=== PATIENT | female | born 1975 | race Caucasian/White ===

== ENCOUNTER → 2016-08-17 | Outpatient (CLI) | payer BC ==
[~2016-08-17] MED LIST: ATOR10TA66 PO
--- NOTE | 2016-08-17 16:31 | Diagnostic Imaging Report ---
INDICATION: IUD strings not visible. COMPARISON: 06/09/2015. DISCUSSION: Transabdominal and transvaginal sonographic evaluation of the pelvis was performed. The uterus is normal in echotexture and size measuring 8.9 x 5.2 x 5.0 cm. IUD is noted along the right aspect of the endometrial canal. Normal endometrial thickness measuring 0.8 cm. Neither ovary was visualized, possibly obscured by bowel. No abnormal adnexal mass or fluid. IMPRESSION: 1. IUD appears to be within the endometrium. 2. Nonvisualization of the bilateral ovaries. Dictated by: Dictated on workstation # [id number]
--- NOTE | 2016-08-18 18:09 | Diagnostic Imaging Report ---
Bilateral screening mammogram. The current study was also evaluated with a Computer Aided Detection (CAD) system. INDICATION: Screening. No current complaints stated on the questionnaire. COMPARISON: 05/08/15. FINDINGS: The breasts are composed of scattered fibroglandular densities. Occasional punctate calcifications are seen. Allowing for technique and positional differences, no suspicious change is seen. IMPRESSION: No significant change. ACR BI-RADS Category 2: Benign findings. Result letter will be mailed to the patient. Note: At least 10% of breast cancer is not imaged by mammography. Dictated by: Dictated on workstation # [id number]
== END ==
LOC: RAD 12:36
PROVIDERS: ATTEND Obstetrics & Gynecology
DX: Z12.31 Encounter for screening mammogram for malignant neoplasm of breast (principal); Z30.431 Encounter for routine checking of intrauterine contraceptive device
CPT/HCPCS: 76830; 76856; 77067

== ENCOUNTER 2017-12-02 09:06 | Outpatient (CLI) | payer BC ==
[~2017-12-02] VITALS: Ht 182.9 cm; Wt 136.3 kg
[2017-12-02] MEDS ORDERED: ENAL5TAB PO (09:16)
[2017-12-02 10:04] LABS: BASOPHILS % (AUTO) 0 % (0-10); EOSINOPHILS # (AUTO) 0.4 10^3/uL (0.0-0.3); EOSINOPHILS % (AUTO) 6 % (0-10); HEMATOCRIT 43 % (35-52); LYMPHOCYTES # (AUTO) 1.9 X 10^3 (1.0-4.0); LYMPHOCYTES % (AUTO) 25 % (12-44); MEAN CORPUSCULAR HEMOGLOBIN 32 PG (25-34); MEAN CORPUSCULAR HGB CONC 35 G/DL (32-36); MEAN CORPUSCULAR VOLUME 93 FL (80-99); MONOCYTES # (AUTO) 0.5 X 10^3 (0.0-1.0); MONOCYTES % (AUTO) 7 % (0-12); NEUTROPHILS # (AUTO) 4.8 X 10^3 (1.8-7.8); NEUTROPHILS % (AUTO) 63 % (42-75); PLATELET COUNT 212 10^3/uL (130-400); RED BLOOD COUNT 4.65 10^6/uL (4.35-5.85); RED CELL DISTRIBUTION WIDTH 13.8 % (10.0-14.5); WHITE BLOOD COUNT 7.6 10^3/uL (4.3-11.0)
== END 2017-12-02 11:36 | disposition home or self-care (01) ==
LOC: PREOP 09:06
PROVIDERS: ATTEND Obstetrics & Gynecology
DX: Z01.812 Encounter for preprocedural laboratory examination (principal); Z11.2 Encounter for screening for other bacterial diseases; N81.10 Cystocele, unspecified; N81.89 Other female genital prolapse; N81.6 Rectocele
CPT/HCPCS: 36415; 85025; 86850; 86900; 86901; 87081

== ENCOUNTER 2017-12-08 06:10 | Day surgery (SDC) | payer BC ==
[~2017-12-08] VITALS: Ht 182.9 cm; Wt 136.3 kg
[~2017-12-08 06:10] MED LIST changes: +ENAL5TAB PO
[2017-12-08] MEDS ORDERED: metroNIDAZOLE 500MG/100ML IVPB 100 ML IV ONE (06:15)
[2017-12-08] MEDS ORDERED: ceFAZolin 2 GM IV Premixed 50 ML IV ONE (06:15)
[2017-12-08 06:25] VITALS: BP 136/97
[2017-12-08] MEDS ORDERED: VASOPRESSIN INJECTION 20 UNIT/ML VIAL ONE (06:51)
[2017-12-08] MEDS ORDERED: ESTROGENS CONJ. CREAM 30 GM (PREMARIN) TUBE ONE (06:51)
[2017-12-08] MEDS ORDERED: BUPIVACAINE 0.25% 30 ML (SENSORCAINE) VIAL ONE (06:52)
[2017-12-08] MEDS ORDERED: FAMOTIDINE 20MG/2ML IV (PEPCID) IV ONE (07:00)
[2017-12-08] MEDS ORDERED: ONDANSETRON 4 MG/2 ML (SDV) Z0FRAN IV ONE (07:00)
[2017-12-08] MEDS: LACTATED RINGERS 1,000 ML IV PRN ×2 (07:00→09:15)
[2017-12-08] MEDS ORDERED: SCOPOLAMINE 1.5 MG (TRANSDERM-SCOP) PATCH TOP ONE (07:00)
[2017-12-08] MEDS ORDERED: MIDAZOLAM 2 MG/2 ML (VERSED) VIAL ONE (07:01)
[2017-12-08] MEDS ORDERED: fentaNYL INJECTION 250 MCG/5 ML AMP ONE (07:01)
[2017-12-08] MEDS ORDERED: DEXAMETHASONE 10 MG/ML (DECADRON) 1 ML VIAL ONE (07:05)
[2017-12-08] MEDS ORDERED: ONDANSETRON 4 MG/2 ML (SDV) Z0FRAN ONE ×2 (07:05→11:04)
[2017-12-08] MEDS ORDERED: proPOfol 200 MG/20 ML (DIPRIVAN) VIAL IV ONE (07:06)
[2017-12-08] MEDS ORDERED: SUCCINYLCHOLINE INJ 100 MG/5 ML SYR ONE (07:06)
[2017-12-08] MEDS ORDERED: LACTATED RINGERS 1,000 ML IV ONE (07:06)
[2017-12-08] MEDS ORDERED: ROCURONIUM 10 MG/ML 5 ML SYRINGE IV ONE ×2 (07:06→09:29)
--- NOTE | 2017-12-08 07:06 | Progress Note-Pre Operative ---
Pre-Operative Progress Note H&P Reviewed The H&P was reviewed, patient examined and no changes noted. Date Seen by Provider: Dec 08, 2017 Time Seen by Provider: 07:00 Date H&P Reviewed: Dec 08, 2017 Time H&P Reviewed: 07:05 Pre-Operative Diagnosis: POP, Cystocele, Rectocele TRISTAN GARCIA DO Dec 08, 2017 7:06 am
[2017-12-08] MEDS ORDERED: SEVOFLURANE (ULTANE) 15 ML INHAL SOLN ONE ×11 (07:07→09:37)
--- NOTE | 2017-12-08 07:10 | Discharge Inst-Women's Service ---
Discharge Inst-Women's Serv Depart Medication/Instructions New, Converted or Re-Newed RX: RX on Chart Consults/Follow Up Additional Follow Up: Yes Orders/Referrals Dr. Cruz in 7-10 days and in 8 weeks Activity Activity: Activity as Tolerated Driving Instructions: No Driving for 1 Week NO SMOKING: NO SMOKING Nothing Inside Vagina: No Douching, No Webber, No Tampons Diet Discharge Diet: No Restrictions Symptoms to Report to : Bleeding Excessive, Pain Increased, Fever Over 101 Degrees F, Vaginal Bleeding Increase, Questions/Concerns For Any Problems or Questions: Contact Your Physician Skin/Wound Care Infection Signs and Symptoms: Increased Redness, Foul Odor of Wound, Increased Drainage, Skin Itchy or Has a Rash, Increased Swelling, Temperature Above 101 F Operative Area Clean and Dry: Keep Incision Clean/Dry Stitches/Humera/Dermabond: Dermabond, Care of Stitches Bathing Instructions: TRISTAN Leyva DO Dec 08, 2017 7:10 am
[2017-12-08] MEDS ORDERED: HYDR-34 PO (07:13)
[2017-12-08] MEDS ORDERED: IBUP-844 PO (07:13)
[2017-12-08] MEDS ORDERED: DOCU100C37 PO (07:13)
[2017-12-08] MEDS ORDERED: SIME80TA16 PO (07:13)
[2017-12-08] MEDS ORDERED: ZOLPIDEM 5 MG (AMBIEN) TAB PO PRN (07:15)
[2017-12-08] MEDS ORDERED: CHLORASEPTIC LOZENGE MM PRN (07:15)
[2017-12-08] MEDS ORDERED: ONDANSETRON 4 MG/2 ML (SDV) Z0FRAN IV PRN (07:15)
[2017-12-08] MEDS ORDERED: ANTACID SUSP 30 ML UDC (MYLANTA) PO PRN (07:15)
[2017-12-08] MEDS: NS (IVPB) 100 ML ONE ×2 (09:20→09:50)
[2017-12-08] MEDS ORDERED: GLYCOPYRROLATE 0.2 MG/ML (ROBINUL) 2 ML VIAL ONE (09:28)
[2017-12-08] MEDS ORDERED: NEOSTIGMINE 1 MG/ML 5 ML SYRINGE ONE (09:28)
--- OUTSIDE RECORDS SUMMARY | 2017-12-08 09:48 | XMS REPORT | Continuity of Care Document ---
Author Author [facility] Organization [facility] Address Unknown Phone Unavailable Allergies Active Description Code Type Severity Reaction Onset Reported/Identified Relationship to Patient Clinical Status Yes codeine [id number] Drug Allergy Moderate GI UPSET 08/08/2015 Medications There is no data. Problems Date Dx Coded Attending Type Code Diagnosis Diagnosed By 05/21/2015 LUCAS FUENTES Ot Z01.419 05/21/2015 LUCAS FUENTES Ot Z12.31 06/30/2015 LUCAS FUENTES Ot R93.8 08/08/2015 JEREMY ALVARADO DO Ot Z01.818 ENCOUNTER FOR OTHER PREPROCEDURAL EXAMIN 08/12/2015 JEREMY ALVARADO DO Ot K92.1 MELENA 08/12/2015 JEREMY ALVARADO DO Ot R19.7 DIARRHEA, UNSPECIFIED 08/12/2015 JEREMY ALVARADO DO Ot Z80.0 FAMILY HISTORY OF MALIGNANT NEOPLASM OF 08/13/2015 JEREMY ALVARADO DO Ot K92.1 08/13/2015 JEREMY ALVARADO DO Ot R19.7 08/13/2015 JEREMY ALVARADO DO Ot Z80.0 09/10/2015 JEREMY ALVARADO DO Ot K92.1 MELENA 09/10/2015 JEREMY ALVARADO DO Ot R19.7 DIARRHEA, UNSPECIFIED 09/10/2015 JEREMY ALVARADO DO Ot Z80.0 FAMILY HISTORY OF MALIGNANT NEOPLASM OF 03/10/2016 LUCAS FUENTES Ot Z01.419 ENCNTR FOR HEALTH AND WELLNESS ADVISOR EXAM (GENERAL) (ROUTINE) 03/10/2016 LUCAS FUENTES Ot Z12.31 ENCNTR SCREEN MAMMOGRAM FOR MALIGNANT NE 03/10/2016 LUCAS FUENTES Ot R93.8 ABNORMAL FINDINGS ON DIAGNOSTIC IMAGING 08/17/2016 LUCAS FUENTES Ot Z01.419 ENCNTR FOR HEALTH AND WELLNESS ADVISOR EXAM (GENERAL) (ROUTINE) 08/17/2016 LUCAS FUENTES Ot Z12.31 ENCNTR SCREEN MAMMOGRAM FOR MALIGNANT NE 08/17/2016 LUCAS FUENTES Ot R93.8 ABNORMAL FINDINGS ON DIAGNOSTIC IMAGING 09/01/2016 BUZZ DAVE, LIDA Cole Ot Z12.31 ENCNTR SCREEN MAMMOGRAM FOR MALIGNANT NE 09/01/2016 LIDA GERBER MD Ot Z30.431 ENCOUNTER FOR ROUTINE CHECKING OF INTRAU Procedures There is no data. Results There is no data. Encounters ACCT No. Visit Date/Time Discharge Status Pt. Type Provider Facility Loc./Unit Complaint [id number] 09/19/2017 09:24:00 09/19/2017 23:59:59 CLS Preadmit LUCAS FUENTES [facility] RAD SCREENING [id number] 08/17/2016 12:36:00 08/17/2016 23:59:59 CLS Outpatient LIDA GERBER MD [facility] RAD SCREENING,US PELVIS NON OB [id number] 08/12/2015 07:50:00 08/12/2015 10:30:00 DIS Outpatient JEREMY ALVARADO DO [facility] BLOOD IN STOOL,FAMILY HISTORY [id number] 08/08/2015 05:35:00 08/08/2015 11:07:00 DIS Outpatient JEREMY ALVARADO DO [facility] PREOP BLOOD IN STOOL,FAMILY HISTORY [id number] 06/09/2015 09:55:00 06/09/2015 23:59:59 CLS Outpatient LUCAS FUENTES [facility] RAD THICKENED ENDOMETRIUM [id number] 05/08/2015 12:47:00 05/08/2015 23:59:59 CLS Outpatient LUCAS FUENTES [facility] RAD SCREENING [id number] 12/08/2017 07:30:00 PEN Preadmit TRISTAN GARCIA DO [facility] SD POP,RECTOCELE GRADE 3, CYSTOCELE GRADE 2 [id number] 02/14/2017 12:42:00 02/14/2017 23:59:00 DIS Outpatient KALLIE BURNETTY
[2017-12-08] MEDS ORDERED: morphine INJ 10 MG/ML 1ML (SYR OR VIAL) ONE (10:07)
[2017-12-08] MEDS ORDERED: KETOROLAC 30 MG/ML VIAL ONE (10:07)
[2017-12-08] MEDS: KETOROLAC 30 MG/ML VIAL IV PRN ×3 (10:12→23:10)
[2017-12-08] MEDS: morphine INJ 10 MG/ML 1ML (SYR OR VIAL) IVP PRN ×2 (10:14→10:25)
[2017-12-08] MEDS ORDERED: ONDANSETRON 4 MG/2 ML (SDV) Z0FRAN IVP PRN (10:30)
[2017-12-08] MEDS ORDERED: HYDROmorphone 1 MG/ML (DILAUDID) 1 ML SYRINGE IV PRN (10:30)
[2017-12-08 11:15] VITALS: BP 122/82
[2017-12-08] MEDS ORDERED: PROMETHAZINE INJ 25 MG/ML (PHENERGAN) AMP IVP PRN (13:00)
[2017-12-08 13:10] VITALS: BP 114/74
[2017-12-08] MEDS ORDERED: ARTIFICAL TEARS 0.4 ML UNIT DOSE (REFRESH PLUS) OU PRN (13:30)
[2017-12-08] MEDS: LACTATED RINGERS 1,000 ML IV SCH ×2 (13:31→21:14)
[2017-12-08 14:00] VITALS: BP 136/84
--- NOTE | 2017-12-08 15:33 | OPERATIVE REPORT ---
DATE OF SERVICE: PREOPERATIVE DIAGNOSES: 1. A 42-year-old female with pelvic organ prolapse. 2. Cystocele grade II. 3. Rectocele grade III. POSTOPERATIVE DIAGNOSES: 1. A 42-year-old female with pelvic organ prolapse. 2. Cystocele grade II. 3. Rectocele grade III. 4. Right ovarian cyst. PROCEDURES: 1. Robotic-assisted total laparoscopic hysterectomy with bilateral salpingectomy and right ovarian cystectomy. 2. Anterior colporrhaphy. 3. Posterior colporrhaphy. SURGEON: Catracho Cruz DO. CLINICAL REIMBURSEMENT SPECIALIST: DELANEY Jack. ANESTHESIA: General endotracheal. ESTIMATED BLOOD LOSS: 80 mL. URINE OUTPUT: 100 mL clear at the end of the procedure. FLUIDS: 1800 mL of lactated Ringer solution. FINDINGS: A normal appearing uterus with prolapse to the vaginal introitus, grade II cystocele and a grade III rectocele. Grossly normal vaginal mucosa. Grossly normal bilateral fallopian tubes. Grossly normal appearing bilateral ovaries with a simple appearing cyst of the right ovary. SPECIMEN SENT: Uterus, bilateral fallopian tubes and right ovarian cyst. INDICATIONS FOR PROCEDURE: This 42-year-old female was a consultation to my clinic from our nurse practitioner for concerns with pelvic organ prolapse, pressure discomfort, pain with intercourse as well as having difficulty passing bowel movement and urine due to the degree of prolapse. We discussed with the patient in the preoperative consultation alternatives including doing nothing as this was not life threatening; however, we also discussed pessary placement. The patient is young at the age of 42, still sexually active with her and desired a definitive therapy, which would be hysterectomy as well as reconstruction of the vaginal rene and anterior and posterior colporrhaphy. We discussed risk of recurrent breakdown of this in detail. Risks of the procedure were discussed in detail. The preoperative and postoperative expectations as well as recovery time frame as well as if anything should be damaged during the procedure. We discussed followup procedure that may be indicated. After all of her questions were answered, consent was obtained in the preoperative area and the patient was taken to the operating room. DESCRIPTION OF PROCEDURE: Once in the operating room, general anesthesia was found to be adequate, placed in dorsal lithotomy position, prepped and draped in a normal sterile fashion. Mason catheter was placed using a sterile technique. A weighted speculum inserted to the patient's vagina. A right angle retractor was utilized. Cervix was grasped at 12 o'clock position using a long Allis clamp. I then placed a 0 Vicryl to the anterior lip of the cervix and then removed the long Allis clamp. The Vicryl suture was then used as my retraction point. I then sound the uterine cavity and depth was found to be 8 cm. I then placed a Heu uterine manipulator with an 8 cm tip and a 3.5 cm colpotomy ring into the uterus, deploying the balloon and advancing the colpotomy ring around the vaginal fornix. Once this was in place, I am able to appreciate bimanual manipulation. I then performed a change of gloves and took my attention to the abdomen where infraumbilically I infiltrated this area using 0.25% Marcaine to make an 8 mm incision and a rectoperineal Veress needle through the incision until the intraperitoneal placement was confirmed using a saline drop test. I then proceeded with insufflation using CO2 gas and opening pressure of 5 mmHg was noted. I proceeded to maximum pressure of 15 mmHg, at which point I removed the Veress needle and introduced an 8 mm blunt trocar through the incision until intraperitoneal placement was confirmed using the da Keyanna laparoscope. I then had the patient placed in in steep Trendelenburg and made to visualize all the anatomy described in my findings above. I then placed two lateral trocars approximately 12 cm lateral to my infraumbilical trocar. These were both 8 mm incisions. The skin was then infiltrated using 0.25% Marcaine. Incisions were made with a knife and the trocars were placed under direct visualization of the laparoscope. Once peritoneal access was obtained through these trocar sites, I then brought in the da Keyanna robot and docked it in the appropriate fashion placing the vessel sealer in the left hand and monopolar amanuel in the right hand. I performed the following dissection bilaterally starting at the uteroovarian ligament I bipolar cauterized this and transected using the vessel sealer. I created a window in the mesosalpinx using monopolar amanuel and took this laterally down the mesosalpinx using cautery to maintain hemostasis and to amputate the fallopian tube from the mesosalpinx. I then grasped the round ligament, bipolar cauterized and transected it using the vessel sealer. I then grasped the entire broad ligament, bipolar cauterized this and transected using the vessel sealer down to the level of the lower uterine segment, at which point I the anterior and posterior leaflets. The anterior leaflet was taken down to the anterior vaginal fornix. The posterior leaflet dissection was taken around to the posterior vaginal fornix. This allowed me to skeletonize the uterine vessels laterally and allowed the ureter to fall laterally to my dissection plane. Once I bipolar cauterized the uterine vessels, I transected them using the vessel sealer. I then created a colpotomy at the 12 o'clock position visualizing the Hue uterine manipulator ring. I then took this around the manipulator ring using monopolar amanuel amputating the cervix away from the vaginal fornix. The entire specimen was then removed from the vagina. I then proceeded to closing the vaginal incision using 2-0 Vicryl suture in a [id number] fashion and the lateral vaginal apices, colposuspending them through the uterosacral ligaments. I then closed the remainder of the vaginal cuff using 2-0 V-Loc in a running fashion, after which there was no active bleeding noted from my dissection planes. I then removed the cyst from the right ovary, which was previously described without difficulty using monopolar amanuel and retraction. There was no active bleeding noted from the ovary either after I did this. This specimen was then removed through the right trocar site. I then proceeded with copiously irrigating the pelvis with normal saline after undocking the da Keyanna robot proceeding laparoscopically. Once again, no active bleeding was noted from any of my dissection planes. I placed FloSeal hemostatic agent over all my planes of dissection and took the patient out of steep Trendelenburg removing the lateral trocars under direct visualization of the laparoscope and infraumbilical trocars left in place to release insufflation and introduced 10 mL of 0.25% Marcaine into the peritoneal cavity for postoperative pain management. I then removed this trocar as well. The skin was then closed using 4-0 Monocryl in an interrupted subcuticular stitches. Dermabond was applied to the incision and Band-Aids were placed over these as well. I then took my attention back to the vagina where there is still the persistence of a cystocele and a rectocele. I first started by performing the cystocele. Weighted speculum was inserted in the patient's vagina, which allowed me to isolate the anterior vaginal wall and isolate the margins of the cystocele. I infiltrated the submucosa of the anterior wall of the vagina along the margin of the cystocele, using vasopressin, a concentration of 20 units in 100 mL of normal saline. Once this was done, there was adequate blanching of the vaginal mucosa. I made an incision at the proximal margin of the cystocele and undermining this margin incision using Metzenbaum scissors down the midline of the cystocele. Once the distal margin of the cystocele is met, I then grasped the lateral aspects of my incision and tented them upward using a T clamp and dissected the underlying vesicovaginal fascia off of the mucosa. The excess mucosa was then trimmed down to the lateral aspects of the incision and this allowed me to place plication sutures to the vesicovaginal fascia using 0 Vicryl suture in an interrupted fashion plicating and reducing the cystocele. I then closed the mucosa of the cystocele using 3-0 Vicryl suture in a running locked fashion, after which good hemostasis was noted from this dissection. I then removed the weighted speculum in and take my attention to the rectocele where starting at the perineum at the mucocutaneous junction, I infiltrated the entire margin of the perineum and the margins of the vaginal mucosa in similar fashion to the cystocele with vasopressin same concentration and obtained adequate tissue blanching. Once this was done, I created an upside down triangle incision on the perineal body and dissected the skin off of the underlying subcutaneous tissue. I was then unable to take a plane in the submucosal space using Metzenbaum scissors down the midline of the rectocele all the way to its distal margin. The incision is taken down the midline as well. The underlying rectovaginal fascia was dissected off the underlying mucosa. I then trimmed the excess vaginal mucosa, reapproximated the rectovaginal fascia using 0 Vicryl suture in interrupted fashion in plication fashion. This reduces the rectocele as well. I then reapproximated the mucosa using 2-0 Vicryl suture in a running locked fashion. Once I got to the mucocutaneous junction, I closed the remainder of the perineal body like I would, an episiotomy repair placing two crown sutures of 2-0 Vicryl suture through the bulbocavernosus muscles and then reapproximating the mucosa and subcuticular tissue using the 3-0 Vicryl suture in running fashion, after which there was no active bleeding noted from any of my dissection planes. I then copiously irrigated the vagina using normal saline and packed the vagina using Premarin soaked vaginal packing. Mason catheter was left in place. The patient tolerated the procedure well and was sent to the recovery area in stable condition. Lap and sponge count was correct at the end of the procedure. Instruments counts were correct as well. Two grams of Ancef and 500 mg of Flagyl were given probably for infection prophylaxis. Job ID: [id number] DocumentID: [id number] Dictated Date: 12/08/2017 10:38:12 Copy Reader Date: 12/08/2017 15:33:06 Dictated By: DO EPI HONEYCUTT
--- NOTE | 2017-12-08 16:06 | Anesthesia-General Post-Op ---
General Patient Condition Mental Status/LOC: Same as Preop Cardiovascular: Satisfactory Nausea/Vomiting: Absent Respiratory: Satisfactory Pain: Controlled Complications: Absent Post Op Complications Complications None Follow Up Care/Instructions Patient Instructions None needed. Anesthesia/Patient Condition Patient Condition Patient was C/O bilateral eye pain on arrival to the women's services floor. I spoke with Maia (WOOD FLOORING SPECIALIST) and she said that the pt did not C/O any issues in PACU. I spoke with pt and her they both said her eyes looked better in the last couple of hours. She is able to fully open her eyes and has no vision issues. I told her to contact us if it worsens. VIVIENNE WEBB DO Dec 08, 2017 16:06
[2017-12-08 16:30] VITALS: BP 102/63
[2017-12-08] MEDS: HYDROcodone/APAP 7.5 MG/325 MG (LORTAB, LORCET PLUS) TABLET PO PRN (16:51)
[2017-12-08 19:52] VITALS: BP 106/51
[2017-12-08] MEDS: DOCUSATE SODIUM 100 MG (COLACE) CAP PO PRN (23:15)
[2017-12-09] MEDS ORDERED: IBUPROFEN 600 MG (MOTRIN) TAB PO PRN
[2017-12-09] MEDS ORDERED: KETOROLAC 30 MG/ML VIAL ONE (04:26)
[2017-12-09 04:31] VITALS: BP 115/65
[2017-12-09] MEDS: KETOROLAC 30 MG/ML VIAL IV PRN (04:34)
[2017-12-09] MEDS: HYDROcodone/APAP 7.5 MG/325 MG (LORTAB, LORCET PLUS) TABLET PO PRN ×2 (05:43→13:04)
[2017-12-09 08:00] VITALS: BP 111/72
[2017-12-09] MEDS: SIMETHICONE 80 MG (MYLICON) CHEW PO PRN ×2 (08:47→13:05)
[2017-12-09] MEDS: DOCUSATE SODIUM 100 MG (COLACE) CAP PO PRN (08:47)
--- NOTE | 2017-12-09 09:09 | Anesthesia-General Post-Op ---
General Patient Condition Mental Status/LOC: Same as Preop Cardiovascular: Satisfactory Nausea/Vomiting: Absent Respiratory: Satisfactory Pain: Controlled Complications: Absent Post Op Complications Complications None Follow Up Care/Instructions Patient Instructions None needed. Anesthesia/Patient Condition Patient Condition Patient is doing well, no complaints, stable vital signs, no apparent adverse anesthesia problems. No complications reported per nursing. SHANDA WATERS CRNA Dec 09, 2017 09:09
[2017-12-09] MEDS ORDERED: ESTR42.52 VG (10:02)
[2017-12-09 12:00] VITALS: BP 98/69
[2017-12-09 14:00] VITALS: BP 98/69
== END 2017-12-09 14:00 | disposition home or self-care (01) ==
LOC: SDC 06:10 → WS 11:00 → SDC 12-09 14:00
PROVIDERS: ATTEND Obstetrics & Gynecology
DX: N81.10 Cystocele, unspecified (principal); N81.6 Rectocele; N72 Inflammatory disease of cervix uteri; N83.8 Other noninflammatory disorders of ovary, fallopian tube and broad ligament; N83.11 Corpus luteum cyst of right ovary; N39.3 Stress incontinence (female) (male); K59.09 Other constipation; I10 Essential (primary) hypertension; K21.9 Gastro-esophageal reflux disease without esophagitis; E66.01 Morbid (severe) obesity due to excess calories; Z68.41 Body mass index [BMI] 40.0-44.9, adult
CPT/HCPCS: 84703; 86850; 86900; 86901; 94664

== ENCOUNTER → 2018-10-13 | Outpatient (CLI) | payer BC ==
[~2018-10-13] MED LIST changes: +DOCU100C37 PO; +ESTR42.52 VG; +HYDR-34 PO; +IBUP-844 PO; +SIME80TA16 PO
--- NOTE | 2018-10-13 11:56 | Diagnostic Imaging Report ---
Clinical indication: Patient with pain in lumbar left hip region for approximately 2 weeks. No known injury. Patient has history of L4-5 discectomy and lap band. Exam: X-ray of the lumbar spine, 3 views. Comparison: None. Findings: Transitional lumbosacral vertebra is seen and will be designated as the S1 vertebral body. Of note, nomenclature may change if cross-sectional imaging of the spine is obtained. Lumbar spine has normal alignment with no acute fracture or dislocation. Hypertrophic spurs involving the visualized lower thoracic spine and lower lumbar spine. There is moderate to severe loss of intervertebral disc height at the L4-L5 and L5-S1 levels. There is mild loss of intervertebral disc height at the L3-L4 level. There is facet arthropathy in the lower lumbar spine. Lap band is noted. Impression: 1: There is no acute lumbar spine fracture or dislocation. 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 Dictated by: Dictated on workstation # [id number]
== END ==
LOC: RAD 10:07
PROVIDERS: ATTEND Family Medicine
DX: M51.37 Other intervertebral disc degeneration, lumbosacral region (principal); M46.86 Other specified inflammatory spondylopathies, lumbar region; Z98.84 Bariatric surgery status; Z98.890 Other specified postprocedural states
CPT/HCPCS: 72100

== ENCOUNTER 2019-02-12 11:00 | Day surgery (SDC) | payer BC ==
[~2019-02-12] VITALS: Ht 180.3 cm; Wt 138.3 kg
[2019-02-12 11:32] VITALS: BP 136/82
--- NOTE | 2019-02-12 11:35 | NUR ---
JOVITA HINTON admitted to room 420-1, with an admitting diagnosis of CHEST PAIN AND DEHYDRATION, on 02/12/[address] OFF[address] [facility] OF [facility]IVATE [facility], accompanied by .JOVITA HINTON introduced to surroundings, call light, bed controls, phone, TV, temperature control, lights, meal times, smoking policy, visitor policy, side rail policy, bathrooms and showers.JOVITA HINTON verbalizes understanding that [facility] is not responsible for the loss or damage to any personal effects or valuables that are kept in the patients posession during their hospitalization. The following Patient Care Plans were discussed with the PATIENT: Discharge Planning,PAIN,TELEMONITORING, and FLUIDS. JOVITA HINTON verbalizes understanding of Interdisciplinary Patient Education.
[2019-02-12 12:00] VITALS: BP 136/82
[2019-02-12 12:02] LABS: BASOPHILS % (AUTO) 0 % (0-10); EOSINOPHILS # (AUTO) 0.1 10^3/uL (0.0-0.3); EOSINOPHILS % (AUTO) 0 % (0-10); HEMATOCRIT 49 % (35-52); HEMOGLOBIN 16.7 G/DL (11.5-16.0); LYMPHOCYTES # (AUTO) 1.5 X 10^3 (1.0-4.0); LYMPHOCYTES % (AUTO) 10 % (12-44); MEAN CORPUSCULAR HEMOGLOBIN 31 PG (25-34); MEAN CORPUSCULAR HGB CONC 34 G/DL (32-36); MEAN CORPUSCULAR VOLUME 90 FL (80-99); MEAN PLATELET VOLUME 9.3 FL (7.4-10.4); MONOCYTES # (AUTO) 0.8 X 10^3 (0.0-1.0); MONOCYTES % (AUTO) 5 % (0-12); NEUTROPHILS # (AUTO) 12.5 X 10^3 (1.8-7.8); NEUTROPHILS % (AUTO) 84 % (42-75); PLATELET COUNT 360 10^3/uL (130-400); RED CELL DISTRIBUTION WIDTH 13.5 % (10.0-14.5); WHITE BLOOD COUNT 14.9 10^3/uL (4.3-11.0)
[2019-02-12 12:24] LABS: ALANINE AMINOTRANSFERASE 102 U/L (0-55); ALBUMIN 3.9 GM/DL (3.2-4.5); ALKALINE PHOSPHATASE 80 U/L (40-136); BILIRUBIN,TOTAL 0.7 MG/DL (0.1-1.0); BUN/CREATININE RATIO 13; CALCIUM 8.8 MG/DL (8.5-10.1); CARBON DIOXIDE 20 MMOL/L (21-32); CHLORIDE 108 MMOL/L (98-107); CREATININE SERUM 0.89 MG/DL (0.60-1.30); GFR ESTIMATED > 60; GLUCOSE 162 MG/DL (70-105); POTASSIUM 4.3 MMOL/L (3.6-5.0); SODIUM 138 MMOL/L (135-145); TOTAL PROTEIN 7.2 GM/DL (6.4-8.2)
--- NOTE | 2019-02-12 12:46 | Consultation-Cardiology ---
HPI-Cardiology Cardiology Consultation: Date of Consultation 02/12/19 Time Seen by a Provider: 12:45 Date of Admission 02-12-19 Attending Physician Sundar Newberry MD Admitting Physician Sundar Newberry MD Consulting Physician Janny Bermeo MD HPI: Chief Complaint: Chest pain Ms. Arias is a 43 year old female admitted to [facility] as a direct admit from Dr. Newberry's office with c/o chest discomfort. She reports she was seen in the ED at [facility] yesterday with for the same discomfort. She reports yesterday she began to have a burning sensation in her chest with radiation of a sharp pain under her left breast. She reports she took antacids without relief and then went to the ED at [facility]. She reports n/v yesterday. She reports she had a fever yesterday as well. She reports they did an EKG and CXR. She reports they gave her a GI cocktail which did not provide any relief. She reports the discomfort gradually resolved. She states again today she had a return of the symptoms. She then went to see Dr. Newberry and was sent to the hospital. She reports the discomfort has improved. She also reports difficulty swallowing at times. She denies any dyspnea, syncope, near syncope or palpitations. She reports continue nausea. Review of Systems-Cardiology Review of Systems Constitutional: No chills; fever; No malaise Eyes: No vision change Ears/Nose/Throat: No epistaxis, No nasal drainage, No recent hearing loss Respiratory: As described under HPI Cardiovascular: As described under HPI Gastrointestinal: As described under HPI Genitourinary: No dysuria, No hematuria Skin: No rash on exposed areas, No ulcerations on exposed areas Psychiatric/Neurological: No anxiety, No depression, No seizure, No focal weakness, No syncope Hematologic: No bleeding abnormalities SFC-Nivbrr-Pibnzu Hx Patient Social History Recent Foreign Travel: No Recent Infectious Disease Expo: No Immunizations Up To Date Tetanus Booster (TDap): Unknown Past Medical History PMH As described under Assessment. Family Medical History Family Medical History: She reports her father had an OK in his 40's. Allergies and Home Medications Allergies Coded Allergies: codeine (Verified Allergy, Intermediate, GI UPSET, 12/02/17) Home Medications Acetaminophen 325 Mg Tablet, 650-975 MG PO Q8H PRN for PAIN-MILD, (Reported) Enalapril Maleate 5 Mg Tablet, 5 MG PO DAILY, (Reported) Ibuprofen 200 Mg Capsule, 600 MG PO Q8H PRN for PAIN-MILD, (Reported) Patient Home Medication List Home Medication List Reviewed: Yes Physical Exam-Cardiology Physical Exam Vital Signs/I&O 02/12/19 02/13/19 02/13/19 02/13/19 20:00 00:00 01:00 04:00 Temp 36.6 36.0 Pulse 85 93 77 Resp 16 18 B/P (MAP) 125/80 (95) 117/78 (91) Pulse Ox 96 96 O2 Delivery Room Air Room Air Room Air 02/13/19 00:00 Intake Total 1989 ml Balance 1989 ml Capillary Refill : Constitutional: AAO x 3, well-developed, well-nourished HEENT: PERRL, hearing is well preserved, oral hygience is good Neck: No carotid bruit; carotid pulses are 2 + bilaterally Respiratory: No accessory muscle use, No respiratory distress; chest expansion is symmetric, chest is bilaterally symmetric, lungs clear to auscultation Cardiovascular: regular rate-rhythm; No JVD; S1 and S2 Gastrointestinal: No tender; soft, round, audible bowel sounds Rectal: deferred Extremities: no lower extremity edema bilateral Neurologic/Psychiatric: grossly intact, power is 5/5 both on sides Skin: No rash on exposed areas, No ulcerations on exposed areas Data Review Labs Laboratory Tests 02/12/19 11:55: White Blood Count 14.9H, Red Blood Count 5.42, Hemoglobin 16.7H, Hematocrit 49, Mean Corpuscular Volume 90, Mean Corpuscular Hemoglobin 31, Mean Corpuscular Hemoglobin Concent 34, Red Cell Distribution Width 13.5, Platelet Count 360, Mean Platelet Volume 9.3, Neutrophils (%) (Auto) 84H, Lymphocytes (%) (Auto) 10L , Monocytes (%) (Auto) 5, Eosinophils (%) (Auto) 0, Basophils (%) (Auto) 0, Neutrophils # (Auto) 12.5H, Lymphocytes # (Auto) 1.5, Monocytes # (Auto) 0.8, Eosinophils # (Auto) 0.1, Basophils # (Auto) 0.0, Neutrophils % (Manual) 82, Lymphocytes % (Manual) 12, Monocytes % (Manual) 4, Eosinophils % (Manual) 1, Band Neutrophils 1, Blood Morphology Comment NORMAL, Sodium Level 138, Potassium Level 4.3, Chloride Level 108H, Carbon Dioxide Level 20L, Anion Gap 10, Blood Urea Nitrogen 12, Creatinine 0.89, Estimat Glomerular Filtration Rate > 60, BU N/Creatinine Ratio 13, Glucose Level 162H, Calcium Level 8.8, Corrected Calcium 8.9, Total Bilirubin 0.7, Aspartate Amino Transf (AST/SGOT) 67H, Alanine Aminotransferase (ALT/SGPT) 102H, Alkaline Phosphatase 80, Troponin I < 0.028, Total Protein 7.2, Albumin 3.9 02/13/19 06:11: White Blood Count 9.4, Red Blood Count 4.37, Hemoglobin 13.6, Hematocrit 41, Mean Corpuscular Volume 93, Mean Corpuscular Hemoglobin 31, Mean Corpuscular Hemoglobin Concent 33, Red Cell Distribution Width 13.3, Platelet Count 262, Mean Platelet Volume 9.5, Sodium Level 136, Potassium Level 4.1, Chloride Level 109H, Carbon Dioxide Level 21, Anion Gap 6, Blood Urea Nitrogen 10, Creatinine 0.74, Estimat Glomerular Filtration Rate > 60, BUN/Creatinine Ratio 14, Glucose Level 118H, Calcium Level 7.8L, Corrected Calcium 8.3L, Total Bilirubin 0.8, Aspartate Amino Transf (AST/SGOT) 36H, Alanine Aminotransferase (ALT/SGPT) 68H, Alkaline Phosphatase 66, Total Protein 5.8L, Albumin 3.4, Magnesium Level 2.0, Triglycerides Level 134, Cholesterol Level 161, LDL Cholesterol Direct 120, VLDL Cholesterol 27, HDL Cholesterol 30L, Thyroid Stimulating Hormone (TSH) 2.31 A/P-Cardiology Assessment/Admission Diagnosis Chest pain of undetermined etiology Cardiac cath of October [address] Mendenhall showed no signif obstructive dz. LVEF 60%. Normal thoracic aortic root Echo of October [address] Mendenhall showed LVEF 60% Elevated liver enzymes of undetermined etiology - medical services managing Leukocytosis of undetermined etiology - medical services managing H/O lap band in [place] approx 10 years ago Elevated BMI of 42.5 Discussion and Recomendations Chest discomfort of undetermined etiology Echocardiogram to eval structure Continue home anti-hypertensives Monitor lab Further recs will be based on her hospital course We would like to thank medical services for this consult GREG MARY Feb 12, 2019 12:46
[2019-02-12 12:59] LABS: BAND NEUTROPHILS 1 %; EOSINOPHILS % (MANUAL) 1 %; LYMPHOCYTES % (MANUAL) 12 %; MONOCYTES % (MANUAL) 4 %; NEUTROPHILS % (MANUAL) 82 %; RBC MORPH NORMAL
[2019-02-12] MEDS ORDERED: IBUP-2185 PO (13:27)
[2019-02-12] MEDS ORDERED: ACET325T38 PO (13:27)
--- NOTE | 2019-02-12 13:28 | NUR ---
SPOKE WITH PT WELL GOING THRU THE EXT MED HISTORY TO COMPLETE THE MED REC. PT SAYS SHE ONLY TAKES 1 PRESCRIPTION MED AND IT SHOWS ON THE EXT MED HISTORY. SHE WAS ABLE TO TELL ME HOW/WHEN SHE TAKES HER MEDS OTC MEDS: IBUPROFEN 200M TABS Q 8 H PRN APAP 325M-3 TS Q 8 H PRN
--- NOTE | 2019-02-12 13:35 | Diagnostic Imaging Report ---
INDICATION: Chest pain. TIME OF EXAMINATION: 1:05 PM. COMPARISON: No prior studies are available for comparison. FINDINGS: The heart size is normal. The pulmonary vascularity is unremarkable. The lungs are clear. No infiltrate, effusion, or pneumothorax is detected. IMPRESSION: No acute cardiopulmonary process is detected. Dictated by: Dictated on workstation # [id number]
[2019-02-12] MEDS: NS IV 1000 ML 1,000 ML IV SCH ×2 (14:18→21:07)
[2019-02-12 16:00] VITALS: BP 115/81
[2019-02-12] MEDS ORDERED: diphenhydrAMINE 25 MG TAB (BENADRYL) PO NR (16:00)
[2019-02-12] MEDS ORDERED: fentaNYL INJECTION 100 MCG/2 ML AMP IVP PRN (16:45)
[2019-02-12] MEDS ORDERED: PROMETHAZINE INJ 25 MG/ML (PHENERGAN) AMP IVP PRN (16:45)
[2019-02-12] MEDS ORDERED: ONDANSETRON 4 MG/2 ML (SDV) Z0FRAN IVP PRN (16:45)
[2019-02-12] MEDS ORDERED: CATHETER FLUSH 10 ML SYR IV PRN (17:00)
--- NOTE | 2019-02-12 17:30 | CONSULTATION REPORT ---
DATE OF SERVICE: 02/12/2019 ADMITTING PRIMARY CARE PHYSICIAN: Dr. Newberry. HISTORY OF PRESENT ILLNESS: The patient is a 43-year-old female who we have seen before in the past. She has a history of morbid obesity and medical comorbidities including degenerative joint disease and hypertension. She is status post laparoscopic adjustable gastric band placement with an [employer]er[employer] APS band in 03/2008 in [place], [place]. We had seen her in 2008 and 2011 for band adjustments due to proximity. She has never been successful with the band and states that her restriction was very short in duration that even after having feels that she would only feel restriction for maybe 24 hours and then again few unrestricted. She states that she has had intermittent episodes of development of nausea, vomiting, epigastric as well as substernal pain. She states that this was initially mild; however, she has had more significant episode starting yesterday. She reports dry heaving with throwing up of small amounts of undigested food. She does not report any hematemesis, no coffee ground emesis. She states that for the most part her bowel movements have been normal, does not report any red blood per rectum nor any dark tarry stools. She is currently not on any acid reducers. PAST MEDICAL HISTORY: Degenerative joint disease, hypertension. PAST SURGICAL HISTORY: Laparoscopic cholecystectomy in 2000, left knee surgery in 1995, L4-L5 diskectomy, laparoscopic adjustable gastric band in 2007, cardiac catheterization in 2008, partial vaginal hysterectomy in 2018. ALLERGIES: CODEINE, MORPHINE. MEDICATIONS: Enalapril daily. SOCIAL HISTORY: Negative smoke, negative alcohol. FAMILY HISTORY: Father, diabetes, hypertension. VITAL SIGNS: Temperature 37.2, blood pressure 115/81, pulse 98, respirations 24, pulse ox 96% on room air. REVIEW OF SYSTEMS: Well-nourished female, currently in no acute distress. She is not experiencing any shortness of breath or difficulty breathing. She has had substernal chest pain on an intermittent basis, which was tolerable; however, had a severe episode starting yesterday. She has also had associated dry heaving in small amounts of emesis of what appeared to be undigested food as well as saliva. No hematemesis, no coffee ground emesis. No red blood per rectum, no dark tarry stools. No fever, chills, no recent inadvertent weight loss. All other review of systems negative. PHYSICAL EXAMINATION: CHEST: Good breath sounds bilaterally. HEART: Regular, no murmurs. EXTREMITIES: +1/3 bilateral lower extremity edema, negative Homans sign. HEENT: No scleral icterus. NECK: No cervical lymphadenopathy. ABDOMEN: Soft, nondistended. There is pain upon palpation at the epigastric region upon deep palpation. No peritoneal signs. SKIN: Warm, dry. LABORATORY DATA: WBC 14.9, hemoglobin 16.7, hematocrit 49, platelets 360. BUN 12, creatinine 0.89. ASSESSMENT AND PLAN: A 43-year-old female with recurrent episodes of epigastric and substernal pain as well as reflux and regurgitation. She is status post laparoscopic gastric band placement in 2007. She states that the band has never worked with minimal restriction. We feel that this may represent a band slippage versus an erosion versus a dilated henrique esophagus. Either way, we will treat her medically now with PPI acid media relations intern IV on a b.i.d. basis and start a clear liquid diet. When she is tolerating clears and does not have any significant nausea nor vomiting. We will proceed with an EGD as well as most likely scheduling her for elective removal of the band laparoscopically. Job ID: [id number] DocumentID: [id number] Dictated Date: 02/12/2019 16:56:58 Link Trainer Mechanic Date: 02/12/2019 17:30:15 Dictated By: ALTAGRACIA LIM MD [facility]
--- NOTE | 2019-02-12 17:31 | History & Physicial ---
History of Present Illness History of Present Illness Reason for visit/HPI 43-year-old female presents to my office today after being seen at [place] emergency department yesterday following having episode of chest discomfort. Ultimately she underwent 2 EKGs as well as 2 different lab draws and it was determined that by her report there was no cardiac issues going on. She does report she was sent home but did not have any particular medicines to take. 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 She also believes some of this may be related to her previous lap band procedure done several years ago. She is also very concerned since her father had premature coronary artery disease. Patient has had cardiac catheterization in the past. Date of Admission Feb 12, 2019 at 11:06 Date Seen by a Provider: Feb 12, 2019 Time Seen by a Provider: 10:00 I consulted on this patient on 02/12/19 17:27 Attending Physician Sundar Marti MD Admitting Physician Sundar Marti MD Consult Allergies and Home Medications Allergies Coded Allergies: codeine (Verified Allergy, Intermediate, GI UPSET, 12/02/17) Home Medications Acetaminophen 325 Mg Tablet, 650-975 MG PO Q8H PRN for PAIN-MILD, (Reported) Enalapril Maleate 5 Mg Tablet, 5 MG PO DAILY, (Reported) Ibuprofen 200 Mg Capsule, 600 MG PO Q8H PRN for PAIN-MILD, (Reported) Patient Home Medication List Home Medication List Reviewed: Yes Past Mwubzal-Saykvv-Tejhst Hx Patient Social History Marrital Status: Employed/Student: employed Alcohol Use: Denies Use Recreational Drug Use: No Smoking Status: Never a Smoker Physical Abuse Screen: No Sexual Abuse: No Recent Foreign Travel: No Contact w/other who traveled: No Recent Hopitalizations: No (nov 2017) Recent Infectious Disease Expo: No Immunizations Up To Date Tetanus Booster (TDap): Unknown Pediatric: No Date of Influenza Vaccine: Feb 12, 2013 Seasonal Allergies Seasonal Allergies: No Surgeries Yes Adenoidectomy, Gallbladder, Tonsillectomy Respiratory No Currently Using CPAP: No Currently Using BIPAP: No Cardiovascular Yes Hypertension Neurological No Reproductive System Hx Reproductive Disorders: Yes (POP, CYSTOCELE AND RECTOCELE) Sexually Transmitted Disease: No HIV/AIDS: No Female Reproductive Disorders: Denies Genitourinary No Gastrointestinal Yes Gastroesophageal Reflux, Chronic Diarrhea Musculoskeletal No Degenerate Disk Disease, Arthritis, Chronic Back Pain Endocrine History of Endocrine Disorders: No HEENT Loss of Vision: Denies Hearing Impairment: Denies Cancer No Psychosocial History of Psychiatric Problem: No Integumentary History of Skin or Integumenta: No Blood Transfusions History of Blood Disorders: No Adverse Reaction to a Blood Tr: No (N/A) Family Medical History Family Hx: Abdominal aortic aneurysm Hypercholesterolemia G8 BROTHER Hypertension G8 BROTHER Myocardial infarction 18 FATHER Review of Systems Constitutional: see HPI Physical Exam Vital Signs Vital Signs - First Documented 02/12/19 11:32 Temp 35.9 Pulse 133 Resp 20 B/P (MAP) 136/82 Pulse Ox 96 O2 Delivery Room Air Capillary Refill : Height, Weight, BMI Height: 6'0.00" Weight: 300lbs. 7.0oz. 136.398298ug; 42.54 BMI Method: General Appearance: Mild Distress (due to epigastric discomfort) HEENT: Pharynx Normal, Moist Mucous Membranes Neck: Supple Respiratory: Lungs Clear Cardiovascular: Regular Rate, Rhythm Gastrointestinal: Soft; No Distended, No Guarding Rectal: Deferred Back: Normal Inspection Extremity: Normal Capillary Refill Neurologic/Psychiatric: Alert, Oriented x3 Skin: Normal Color Comments NAME: JOVITA HINTON MED REC#: [id number] PT STATUS: ADM Reese : 1975 PHYSICIAN: SUNDAR MARTI MD ADMIT DATE: 02/12/19 Signed Date of Exam: 02/12/19 CHEST PA/LAT (2 VIEW) INDICATION: Chest pain. TIME OF EXAMINATION: 1:05 PM. COMPARISON: No prior studies are available for comparison. FINDINGS: The heart size is normal. The pulmonary vascularity is unremarkable. The lungs are clear. No infiltrate, effusion, or pneumothorax is detected. IMPRESSION: No acute cardiopulmonary process is detected. Dictated by: Dictated on workstation # [id number] Dict: 02/12/19 1333 Trans: 02/12/19 1927 Interpreted by: JILL LONG MD Electronically signed by: JILL LONG MD 02/12/19 8510 Assessment/Plan Assessment and Plan 1. Chest discomfortetiology most likely related to gastric in origin. Cannot totally exclude coronary as she has hypertension and hyperlipidemia. She is also had history of cardiac catheterization. -Consultation with Dr. Ortiz, surgery, as well as Dr. Bermeo, cardiology 2. Dehydration as evident by pulse and the lack of oral intake - she was initiated on IV fluids at 125 mL per hour. 3. Low-grade feveretiology may be viral but will continue to monitor -recheck CBC in the morning Admission Diagnosis 1. Chest discomfortetiology most likely related to gastric in origin. Cannot totally exclude coronary as she has hypertension and hyperlipidemia. She is also had history of cardiac catheterization. 2. Dehydration as evident by pulse and the lack of oral intake 3. Low-grade feveretiology may be viral but will continue to monitor Admission Status: Observation Clinical Quality Measures DVT/VTE Risk/Contraindication: Risk Factor Score Per Nursin RFS Level Per Nursing on Admit: 3=High SUNDAR MARTI MD Feb 12, 2019 17:31
--- NOTE | 2019-02-12 18:08 | Consultation-Cardiology ---
HPI-Cardiology Cardiology Consultation: Date of Consultation 02/12/19 Time Seen by a Provider: 17:20 Date of Admission Attending Physician Sundar Newberry MD Admitting Physician Sundar Newberry MD Consulting Physician SD DELUNA MD, MA, FACP, FAC, [facility], [facility] Physician requesting consult: Dr Newberry HPI: Chief Complaint: CC: Chest pain HPI Ms. Arias is a 43 year old female admitted to [facility] as a direct admit from Dr. Newberry's office with c/o chest discomfort. She reports she was seen in the ED at [facility] yesterday with for the same discomfort. She reports yesterday she began to have a burning sensation in her chest with radiation of a sharp pain under her left breast. She reports she took antacids without relief and then went to the ED at [facility]. She reports n/v yesterday. She reports she had a fever yesterday as well. She reports they did an EKG and CXR. She reports they gave her a GI cocktail which did not provide any relief. She reports the discomfort gradually resolved. She states again today she had a return of the symptoms. She then went to see Dr. Newberry and was sent to the hospital. She reports the discomfort has improved. She also reports difficulty swallowing at times. She denies any dyspnea, syncope, near syncope or palpitations. She reports continue nausea. Review of Systems-Cardiology Review of Systems Constitutional: No chills; fever; No malaise Eyes: No vision change Ears/Nose/Throat: No epistaxis, No nasal drainage, No recent hearing loss Respiratory: As described under HPI Cardiovascular: As described under HPI Gastrointestinal: As described under HPI Genitourinary: No dysuria, No hematuria Skin: No rash on exposed areas, No ulcerations on exposed areas Psychiatric/Neurological: No anxiety, No depression, No seizure, No focal weakness, No syncope Hematologic: No bleeding abnormalities CLK-Sbhvhv-Kgdvoe Hx Patient Social History Marrital Status: Employed/Student: employed Alcohol Use: Denies Use Recreational Drug Use: No Smoking Status: Never a Smoker Recent Foreign Travel: No Recent Infectious Disease Expo: No Physical Abuse Screen: No Sexual Abuse: No Immunizations Up To Date Tetanus Booster (TDap): Unknown Date of Influenza Vaccine: Feb 12, 2013 Past Medical History PMH As described under Assessment. Family Medical History Family Medical History: She reports her father had an WA in his 40's. Family History: Abdominal aortic aneurysm Hypercholesterolemia G8 BROTHER Hypertension G8 BROTHER Myocardial infarction 19 FATHER Allergies and Home Medications Allergies Coded Allergies: codeine (Verified Allergy, Intermediate, GI UPSET, 12/02/17) Home Medications Acetaminophen 325 Mg Tablet, 650-975 MG PO Q8H PRN for PAIN-MILD, (Reported) Enalapril Maleate 5 Mg Tablet, 5 MG PO DAILY, (Reported) Ibuprofen 200 Mg Capsule, 600 MG PO Q8H PRN for PAIN-MILD, (Reported) Patient Home Medication List Home Medication List Reviewed: Yes Physical Exam-Cardiology Physical Exam Vital Signs/I&O 02/12/19 02/12/19 02/12/19 02/12/19 11:32 12:00 14:31 16:00 Temp 35.9 36.6 37.2 Pulse 133 133 106 98 Resp 20 20 24 B/P (MAP) 136/82 136/82 (100) 115/81 (92) Pulse Ox 96 96 96 O2 Delivery Room Air Room Air Room Air Capillary Refill : Constitutional: AAO x 3, well-developed, well-nourished HEENT: PERRL, hearing is well preserved, oral hygience is good Neck: No carotid bruit; carotid pulses are 2 + bilaterally Respiratory: No accessory muscle use, No respiratory distress; chest expansion is symmetric, chest is bilaterally symmetric, lungs clear to auscultation Cardiovascular: regular rate-rhythm; No JVD; S1 and S2 Gastrointestinal: No tender; soft, round, audible bowel sounds Rectal: deferred Extremities: no lower extremity edema bilateral Neurologic/Psychiatric: grossly intact, power is 5/5 both on sides Skin: No rash on exposed areas, No ulcerations on exposed areas Data Review Labs Laboratory Tests 02/12/19 11:55: White Blood Count 14.9H, Red Blood Count 5.42, Hemoglobin 16.7H, Hematocrit 49, Mean Corpuscular Volume 90, Mean Corpuscular Hemoglobin 31, Mean Corpuscular Hemoglobin Concent 34, Red Cell Distribution Width 13.5, Platelet Count 360, Mean Platelet Volume 9.3, Neutrophils (%) (Auto) 84H, Lymphocytes (%) (Auto) 10L , Monocytes (%) (Auto) 5, Eosinophils (%) (Auto) 0, Basophils (%) (Auto) 0, Neutrophils # (Auto) 12.5H, Lymphocytes # (Auto) 1.5, Monocytes # (Auto) 0.8, Eosinophils # (Auto) 0.1, Basophils # (Auto) 0.0, Neutrophils % (Manual) 82, Lymphocytes % (Manual) 12, Monocytes % (Manual) 4, Eosinophils % (Manual) 1, Band Neutrophils 1, Blood Morphology Comment NORMAL, Sodium Level 138, Potassium Level 4.3, Chloride Level 108H, Carbon Dioxide Level 20L, Anion Gap 10, Blood Urea Nitrogen 12, Creatinine 0.89, Estimat Glomerular Filtration Rate > 60, BUN/Creatinine Ratio 13, Glucose Level 162H, Calcium Level 8.8, Corrected Calcium 8.9, Total Bilirubin 0.7, Aspartate Amino Transf (AST/SGOT) 67H, Alanine Aminotransferase (ALT/SGPT) 102H, Alkaline Phosphatase 80, Troponin I < 0.028, Total Protein 7.2, Albumin 3.9 A/P-Cardiology Assessment/Admission Diagnosis Chest pain of undetermined etiology. No evidence of ACS so far Echo of 02/12/19: LVEF 55-60%, mild enlargement of LA, RVSP 40 mmHg Cardiac cath of October [address] Mendenhall showed no signif obstructive dz. LVEF 60%. Normal thoracic aortic root Echo of October [address] Mendenhall showed LVEF 60% Elevated liver enzymes of undetermined etiology - Medical Services managing Leukocytosis of undetermined etiology - Medical Services managing H/o lap band in [place] approx 10 years ago Elevated BMI of 42.5 Discussion and Recomendations Continue home anti-hypertensives Consider full GI eval Monitor lab Further recs will be based on her hospital course I discussed her case with Dr Newberry on the phone this am Clinical Quality Measures DVT/VTE Risk/Contraindication: Risk Factor Score Per Nursin RFS Level Per Nursing on Admit: 3=High SD DELUNA MD [facility]S Feb 12, 2019 18:08
[2019-02-12 19:42] VITALS: BP 132/91
--- NOTE | 2019-02-12 20:38 | NUR ---
PT ASKED FOR MEDICATION TO HELP HER SLEEP. SHE SAYS SHE GETS RESTLESS IN HOSPITALS AND CAN'T SLEEP. SPOKE WITH DR. MARTI. NEW ORDERS RECEIVED.
[2019-02-12] MEDS ORDERED: ZOLPIDEM 5 MG (AMBIEN) TAB PO ONE (21:00)
[2019-02-12] MEDS ORDERED: ZOLPIDEM 5 MG (AMBIEN) TAB ONE (21:05)
[2019-02-12] MEDS: METOCLOPRAMIDE INJ 10 MG/2 ML (REGLAN) IVP PRN (21:07)
[2019-02-12] MEDS: PANTOPRAZOLE 40 MG (PROTONIX) VIAL IV SCH (21:07)
[2019-02-13] VITALS: BP 125/80
[2019-02-13] MEDS: diphenhydrAMINE 25 MG TAB (BENADRYL) PO PRN ×3 (00:41→15:11)
[2019-02-13] MEDS: NS IV 1000 ML 1,000 ML IV SCH ×2 (03:18→13:30)
[2019-02-13 04:00] VITALS: BP 117/78
[2019-02-13 06:37] LABS: HEMOGLOBIN 13.6 G/DL (11.5-16.0); MEAN PLATELET VOLUME 9.5 FL (7.4-10.4); RED CELL DISTRIBUTION WIDTH 13.3 % (10.0-14.5); WHITE BLOOD COUNT 9.4 10^3/uL (4.3-11.0)
[2019-02-13 07:07] LABS: ALANINE AMINOTRANSFERASE 68 U/L (0-55); ALBUMIN 3.4 GM/DL (3.2-4.5); ALKALINE PHOSPHATASE 66 U/L (40-136); BILIRUBIN,TOTAL 0.8 MG/DL (0.1-1.0); BUN/CREATININE RATIO 14; CALCIUM 7.8 MG/DL (8.5-10.1); CARBON DIOXIDE 21 MMOL/L (21-32); CHLORIDE 109 MMOL/L (98-107); CHOLESTEROL 161 MG/DL (< 200); CREATININE SERUM 0.74 MG/DL (0.60-1.30); GFR ESTIMATED > 60; GLUCOSE 118 MG/DL (70-105); HDL CHOLESTEROL 30 MG/DL (40-60); POTASSIUM 4.1 MMOL/L (3.6-5.0); SODIUM 136 MMOL/L (135-145); TOTAL PROTEIN 5.8 GM/DL (6.4-8.2); TRIGLYCERIDES 134 MG/DL (<150); VLDL CHOLESTEROL 27 MG/DL (5-40)
--- NOTE | 2019-02-13 07:32 | Progress Note ---
Subjective Date Seen by a Provider: Feb 13, 2019 Time Seen by a Provider: 07:20 Subjective/Events-last exam patient rested fairly well overnight. She did require having Benadryl for hives again secondary to morphine reaction. She does report yesterday evening having broth. 30 minutes later she had significant discomfort similar to what she experienced the evening before. Objective Exam Vital Signs Date Time Temp Pulse Resp B/P (MAP) Pulse Ox O2 Delivery O2 Flow Rate FiO2 02/13/19 04:00 36.0 77 18 117/78 (91) 96 Room Air 02/13/19 01:00 93 02/13/19 00:00 36.6 85 16 125/80 (95) 96 Room Air 02/12/19 20:00 Room Air 02/12/19 19:42 37.5 98 20 132/91 (105) 97 Room Air 02/12/19 19:00 105 02/12/19 16:00 37.2 98 24 115/81 (92) 96 Room Air 02/12/19 14:31 106 02/12/19 12:00 36.6 133 20 136/82 (100) 96 Room Air 02/12/19 11:32 35.9 133 20 136/82 96 Room Air I & O 02/13/19 07:00 Intake Total 3240 ml Balance 3240 ml Capillary Refill : General Appearance: No Apparent Distress Respiratory: Lungs Clear Cardiovascular: Regular Rate, Rhythm (Benadr) Gastrointestinal: soft ( is helpful to r), other (pressure in the epigastrium does not reveal any reflux symptoms) Results Lab Laboratory Tests 02/12/19 11:55: White Blood Count 14.9H, Red Blood Count 5.42, Hemoglobin 16.7H, Hematocrit 49, Mean Corpuscular Volume 90, Mean Corpuscular Hemoglobin 31, Mean Corpuscular Hemoglobin Concent 34, Red Cell Distribution Width 13.5, Platelet Count 360, Mean Platelet Volume 9.3, Neutrophils (%) (Auto) 84H, Lymphocytes (%) (Auto) 10L , Monocytes (%) (Auto) 5, Eosinophils (%) (Auto) 0, Basophils (%) (Auto) 0, Neutrophils # (Auto) 12.5H, Lymphocytes # (Auto) 1.5, Monocytes # (Auto) 0.8, Eosinophils # (Auto) 0.1, Basophils # (Auto) 0.0, Neutrophils % (Manual) 82, Lymphocytes % (Manual) 12, Monocytes % (Manual) 4, Eosinophils % (Manual) 1, Band Neutrophils 1, Blood Morphology Comment NORMAL, Sodium Level 138, Potassium Level 4.3, Chloride Level 108H, Carbon Dioxide Level 20L, Anion Gap 10, Blood Urea Nitrogen 12, Creatinine 0.89, Estimat Glomerular Filtration Rate > 60, BUN/Creatinine Ratio 13, Glucose Level 162H, Calcium Level 8.8, Corrected Calcium 8.9, Total Bilirubin 0.7, Aspartate Amino Transf (AST/SGOT) 67H, Alanine Aminotransferase (ALT/SGPT) 102H, Alkaline Phosphatase 80, Troponin I < 0.028, Total Protein 7.2, Albumin 3.9 02/13/19 06:11: White Blood Count 9.4, Red Blood Count 4.37, Hemoglobin 13.6, Hematocrit 41, Mean Corpuscular Volume 93, Mean Corpuscular Hemoglobin 31, Mean Corpuscular Hemoglobin Concent 33, Red Cell Distribution Width 13.3, Platelet Count 262, Mean Platelet Volume 9.5, Sodium Level 136, Potassium Level 4.1, Chloride Level 109H, Carbon Dioxide Level 21, Anion Gap 6, Blood Urea Nitrogen 10, Creatinine 0.74, Estimat Glomerular Filtration Rate > 60, BUN/Creatinine Ratio 14, Glucose Level 118H, Calcium Level 7.8L, Corrected Calcium 8.3L, Total Bilirubin 0.8, Aspartate Amino Transf (AST/SGOT) 36H, Alanine Aminotransferase (ALT/SGPT) 68H, Alkaline Phosphatase 66, Total Protein 5.8L, Albumin 3.4, Magnesium Level 2.0, Triglycerides Level 134, Cholesterol Level 161, LDL Cholesterol Direct 120, VLDL Cholesterol 27, HDL Cholesterol 30L, Thyroid Stimulating Hormone (TSH) 2.31 Assessment/Plan Assessment/Plan Assess & Plan/Chief Complaint 1. Chest discomfortetiology most likely related to gastric in origin. Cannot totally exclude coronary as she has hypertension and hyperlipidemia. She is a lso had history of cardiac catheterization. -Consultation with Dr. Ortiz, surgery, as well as Dr. Bermeo, cardiology 02/13 -patient reports having another spell of after having broth yesterday evening 30 minutes later. 2. Dehydration as evident by pulse and the lack of oral intake - she was initiated on IV fluids at 125 mL per hour. 02/13 -urine output improved 3. Low-grade feveretiology may be viral but will continue to monitor -recheck CBC in the morning 02/13 -white blood cell count normalized this morning 4. Hives and pruritus secondary to morphine -Benadryl is helpful to Clinical Quality Measures Admission Status Admission Dx 1. Chest discomfortetiology most likely related to gastric in origin. Cannot totally exclude coronary as she has hypertension and hyperlipidemia. She is also had history of cardiac catheterization. -Consultation with Dr. Ortiz, surgery, as well as Dr. Bermeo, cardiology 2. Dehydration as evident by pulse and the lack of oral intake - she was initiated on IV fluids at 125 mL per hour. 3. Low-grade feveretiology may be viral but will continue to monitor -recheck CBC in the morning DVT/VTE Risk/Contraindication: Risk Factor Score Per Nursin RFS Level Per Nursing on Admit: 3=High MONICA MARTI MD Feb 13, 2019 07:32
[2019-02-13 08:00] VITALS: BP 129/77
[2019-02-13] MEDS: PANTOPRAZOLE 40 MG (PROTONIX) VIAL IV SCH ×2 (08:45→21:47)
[2019-02-13 12:00] VITALS: BP 127/72
--- NOTE | 2019-02-13 13:49 | Progress Note - Cardiology ---
Cardiology SOAP Progress Note Subjective: Sitting up in recliner at the bedside. Reports last evening after eating broth she developed burning in her chest again. Resolved with administration of Reglan. She reports a red, raised rash which itches. She believes it is from the Morphine she received. Objective: I&O/Vital Signs 02/13/19 02/13/19 02/13/19 02/13/19 08:00 08:15 12:00 12:49 Temp 36.3 36.2 Pulse 94 71 69 Resp 20 18 B/P (MAP) 129/77 (94) 127/72 (90) Pulse Ox 97 96 O2 Delivery Room Air Room Air Room Air 02/13/19 15:37 Temp 36.8 Pulse 73 Resp 18 B/P (MAP) 106/59 (75) Pulse Ox 96 O2 Delivery Room Air 02/13/19 00:00 Intake Total 1989 ml Balance 1989 ml Weight (Pounds): 300 Weight (Ounces): 7.0 Weight (Calculated Kilograms): 136.636854 Constitutional: AAO x 3, well-developed, well-nourished Respiratory: No accessory muscle use, No respiratory distress; chest expansion is symmetric, chest is bilaterally symmetric, lungs clear to auscultation Cardiovascular: regular rate-rhythm; No JVD; S1 and S2 Gastrointestional: No tender; soft, round, audible bowel sounds Extremities: no lower extremity edema bilateral Neurologic/Psychiatric: grossly intact, power is 5/5 both on sides Skin: rash on exposed areas (red, raised rash to torso and arms); No ulcerations on exposed areas Results/Procedures: Labs Laboratory Tests 02/13/19 06:11: White Blood Count 9.4, Red Blood Count 4.37, Hemoglobin 13.6, Hematocrit 41, Mean Corpuscular Volume 93, Mean Corpuscular Hemoglobin 31, Mean Corpuscular Hemoglobin Concent 33, Red Cell Distribution Width 13.3, Platelet Count 262, Mean Platelet Volume 9.5, Sodium Level 136, Potassium Level 4.1, Chloride Level 109H, Carbon Dioxide Level 21, Anion Gap 6, Blood Urea Nitrogen 10, Creatinine 0.74, Estimat Glomerular Filtration Rate > 60, BUN/Creatinine Ratio 14, Glucose Level 118H, Calcium Level 7.8L, Corrected Calcium 8.3L, Magnesium Level 2.0, Total Bilirubin 0.8, Aspartate Amino Transf (AST/SGOT) 36H, Alanine Aminotrans ferase (ALT/SGPT) 68H, Alkaline Phosphatase 66, Total Protein 5.8L, Albumin 3.4, Triglycerides Level 134, Cholesterol Level 161, LDL Cholesterol Direct 120, VLDL Cholesterol 27, HDL Cholesterol 30L, Thyroid Stimulating Hormone (TSH) 2.31 Laboratory Tests 02/12/19 11:55 02/13/19 06:11 A/P: Assessment: Chest pain of undetermined etiology. No evidence of ACS Echo of 02/12/19: LVEF 55-60%, mild enlargement of LA, RVSP 40 mmHg Cardiac cath of October [address] Mendenhall showed no signif obstructive dz. LVEF 60%. Normal thoracic aortic root Rash of undetermined etiology - medical services managing Elevated liver enzymes of undetermined etiology - Medical Services managing Leukocytosis of undetermined etiology - Medical Services managing H/o lap band in [place] approx 10 years ago Elevated BMI of 42.5 Plan: Continue home anti-hypertensives Consider full GI eval - Dr. Ortiz is following Monitor lab Rash of undetermined etiology - medical services managing Per nursing staff Dr. Ortiz is requesting cardiac clearance for endoscopy to be done - clearance will follow per Dr. Bermeo Physician Assessment Physician Assessment Chest and epigastric discomfort better, but not resolve. Still difficulty swallowing. Food / liquids cause retrosternal burning. Denies palp or syncope. Mild chronic shortness of breath Lungs: fair to good bilateral air entry Cor: reg Ext: mild edema A&R * As documented in our note above that I updated (italics) and as noted below * Monitor labs * I reviewed her CV issues with her and her and answered questions * Cardiac risk for endoscopy is estimated to be relatively low. It would be reasonable to proceed with necessary procedures GREG MARY MOLECULAR BIOLOGY PROFESSOR Feb 13, 2019 13:49 SD BERMEO MD [facility] Feb 13, 2019 19:58
[2019-02-13] MEDS: methylPREDNISolone 40 MG/ML (Solu-MEDROL) VIAL IV SCH ×2 (14:12→21:47)
--- NOTE | 2019-02-13 14:19 | Progress Note ---
Subjective Date Seen by a Provider: Feb 13, 2019 Time Seen by a Provider: 14:00 Subjective/Events-last exam doing ok. able to tolerate clears. mild GERD last night. no nausea/vomiting. Objective Exam Vital Signs Date Time Temp Pulse Resp B/P (MAP) Pulse Ox O2 Delivery O2 Flow Rate FiO2 02/13/19 12:00 36.2 71 18 127/72 (90) 96 Room Air 02/13/19 08:15 Room Air 02/13/19 08:00 36.3 94 20 129/77 (94) 97 Room Air 02/13/19 06:58 72 02/13/19 04:00 36.0 77 18 117/78 (91) 96 Room Air 02/13/19 01:00 93 02/13/19 00:00 36.6 85 16 125/80 (95) 96 Room Air 02/12/19 20:00 Room Air 02/12/19 19:42 37.5 98 20 132/91 (105) 97 Room Air 02/12/19 19:00 105 02/12/19 16:00 37.2 98 24 115/81 (92) 96 Room Air 02/12/19 14:31 106 I & O 02/13/19 07:00 Intake Total 3240 ml Balance 3240 ml Capillary Refill : General Appearance: No Apparent Distress HEENT: PERRL/EOMI Neck: Full Range of Motion Respiratory: Chest Non Tender, Lungs Clear, Normal Breath Sounds Cardiovascular: Regular Rate, Rhythm Gastrointestinal: normal bowel sounds, soft, tenderness Extremity: Normal Capillary Refill Neurologic/Psychiatric: Alert, Oriented x3 Skin: Normal Color Lymphatic: No Adenopathy Results Lab Laboratory Tests 02/13/19 06:11: White Blood Count 9.4, Red Blood Count 4.37, Hemoglobin 13.6, Hematocrit 41, Mean Corpuscular Volume 93, Mean Corpuscular Hemoglobin 31, Mean Corpuscular Hemoglobin Concent 33, Red Cell Distribution Width 13.3, Platelet Count 262, Mean Platelet Volume 9.5, Sodium Level 136, Potassium Level 4.1, Chloride Level 109H, Carbon Dioxide Level 21, Anion Gap 6, Blood Urea Nitrogen 10, Creatinine 0.74, Estimat Glomerular Filtration Rate > 60, BUN/Creatinine Ratio 14, Glucose Level 118H, Calcium Level 7.8L, Corrected Calcium 8.3L, Magnesium Level 2.0, Total Bilirubin 0.8, Aspartate Amino Transf (AST/SGOT) 36H, Alanine Aminotransferase (ALT/SGPT) 68H, Alkaline Phosphatase 66, Total Protein 5.8L, Albumin 3.4, Triglycerides Level 134, Cholesterol Level 161, LDL Cholesterol Direct 120, VLDL Cholesterol 27, HDL Cholesterol 30L, Thyroid Stimulating Hormone (TSH) 2.31 Assessment/Plan Assessment/Plan Assess & Plan/Chief Complaint symptomatic reflux/regurgitation despite medical therapy. will schedule EGD with bx in am. Clinical Quality Measures DVT/VTE Risk/Contraindication: Risk Factor Score Per Nursin RFS Level Per Nursing on Admit: 3=High ALTAGRACIA LIM MD Feb 13, 2019 14:19
--- NOTE | 2019-02-13 14:21 | Conscious Sedation/ASA ---
Conscious Sedation Pre-Proced Time 14:20 ASA Score 2 For ASA 3 and 4: Consider anesthesia and medical clearance. Also, for patients with a history of failed moderate sedation consider anesthesia. Airway Lungs Heart ASA score ASA 1: a normal healthy patient ASA 2: a patient with a mild systemic disease (mid diabetes, controlled hypertension, obesity ASA 3: a patient with a severe systemic disease that limits activity (angina, COPD, prior Myocardial infarction) ASA 4: a patient with an incapacitating disease that is a constant threat to life (CHF, renal failure) ASA 5: a moribund patient not expected to survive 24 hrs. (ruptured aneurysm) ASA 6: a declared brain- patient whose organs are being harvested. For emergent operations, add the letter E after the classification Mallampati Classification Grade 3 Sedation Plan Analgesia, Amnesia, Plan communicated to team members, Discussed options with patient/fam, Discussed risks with patient/fam The patient is an appropriate candidate to undergo the planned procedure, sedation, and anesthesia. The patient immediately re-assessed prior to indication. ALTAGRACIA LIM MD Feb 13, 2019 14:21
--- NOTE | 2019-02-13 14:22 | Progress Note-Pre Operative ---
Pre-Operative Progress Note H&P Reviewed The H&P was reviewed, patient examined and no changes noted. Date Seen by Provider: Feb 13, 2019 Time Seen by Provider: 14:20 Date H&P Reviewed: Feb 13, 2019 Time H&P Reviewed: 14:20 Pre-Operative Diagnosis: GERD, regurgitation, substernal pain. ALTAGRACIA LIM MD Feb 13, 2019 14:22
[2019-02-13] MEDS: METOCLOPRAMIDE INJ 10 MG/2 ML (REGLAN) IVP PRN (15:10)
[2019-02-13 15:37] VITALS: BP 106/59
[2019-02-13 20:00] VITALS: BP 120/72
[2019-02-14] VITALS (11 sets, daily range): BP systolic 107–156; BP diastolic 55–78
[2019-02-14] MEDS: NS IV 1000 ML 1,000 ML IV SCH ×3 (00:11→11:27)
--- NOTE | 2019-02-14 07:06 | Progress Note ---
Subjective Date Seen by a Provider: Feb 14, 2019 Time Seen by a Provider: 07:15 Subjective/Events-last exam No complaints. Feeling better with regards to chest pain. Will have EGD this afternoon. Objective Exam Vital Signs Date Time Temp Pulse Resp B/P (MAP) Pulse Ox O2 Delivery O2 Flow Rate FiO2 02/14/19 04:00 36.6 80 18 107/55 (72) 94 Room Air 02/14/19 01:00 67 02/14/19 00:00 36.4 69 16 120/57 (78) 93 Room Air 02/13/19 20:00 36.0 70 16 120/72 (88) 96 Room Air 02/13/19 20:00 Room Air 02/13/19 19:00 73 02/13/19 15:37 36.8 73 18 106/59 (75) 96 Room Air 02/13/19 12:49 69 02/13/19 12:00 36.2 71 18 127/72 (90) 96 Room Air 02/13/19 08:15 Room Air 02/13/19 08:00 36.3 94 20 129/77 (94) 97 Room Air I & O 02/14/19 07:00 Intake Total 1980 ml Balance 1980 ml Capillary Refill : General Appearance: No Apparent Distress Neck: Supple Respiratory: Lungs Clear Cardiovascular: Regular Rate, Rhythm Gastrointestinal: soft; No distended, No guarding, No rebound Assessment/Plan Assessment/Plan Assess & Plan/Chief Complaint 1. Chest discomfortetiology most likely related to gastric in origin. Cannot totally exclude coronary as she has hypertension and hyperlipidemia. She is also had history of cardiac catheterization. -Consultation with Dr. Ortiz, surgery, as well as Dr. Bermeo, cardiology 02/13 -patient reports having another spell of after having broth yesterday evening 30 minutes later. 02/14 -EGD is planned today with biopsy according to surgery 2. Dehydration as evident by pulse and the lack of oral intake - she was initiated on IV fluids at 125 mL per hour. 02/13 -urine output improved 02/14 -We will discontinue the IV fluids after scope by surgery today 3. Low-grade feveretiology may be viral but will continue to monitor -recheck CBC in the morning 02/13 -white blood cell count normalized this morning 02/14 -Resolved 4. Hives and pruritus secondary to morphine -Benadryl is helpful with relieving itch and rash 02/14 -started on solumedrol yesterday afternoon due to persistent return of itch and rash Clinical Quality Measures Admission Status Admission Dx 1. Chest discomfortetiology most likely related to gastric in origin. Cannot totally exclude coronary as she has hypertension and hyperlipidemia. She is also had history of cardiac catheterization. -Consultation with Dr. Ortiz, surgery, as well as Dr. Bermeo, cardiology 2. Dehydration as evident by pulse and the lack of oral intake - she was initiated on IV fluids at 125 mL per hour. 3. Low-grade feveretiology may be viral but will continue to monitor -recheck CBC in the morning DVT/VTE Risk/Contraindication: Risk Factor Score Per Nursin RFS Level Per Nursing on Admit: 3=High MONICA MARTI MD Feb 14, 2019 07:06
[2019-02-14] MEDS: PANTOPRAZOLE 40 MG (PROTONIX) VIAL IV SCH (08:09)
[2019-02-14] MEDS: methylPREDNISolone 40 MG/ML (Solu-MEDROL) VIAL IV SCH (08:10)
[2019-02-14] MEDS ORDERED: HYDR15SO6 PO (14:51)
[2019-02-14] MEDS ORDERED: SUCR1TAB36 PO (14:51)
[2019-02-14] MEDS ORDERED: PANT40TA2 PO (14:51)
--- NOTE | 2019-02-14 14:51 | Discharge Inst-Surgical ---
D/C Lap Instructions-KIDO New, Converted, or Re-Newed RX: RX on Chart Follow Up Appt in 2 weeks Activity as tolerated High Fiber Diet 25g or more per day Avoid Alcohol, Caffeine, Spicy [place] and Acid foods. Drink 64 fluid oz or more of fluids per day. Symptoms to Report: Fever over 101 degree F, Nausea/Vomiting If any problems/questions: Contact your physician or go to Emergency Room ALTAGRACIA ILM MD Feb 14, 2019 14:51
[2019-02-14] MEDS ORDERED: NS IV 500 ML 500 ML ONE (15:17)
[2019-02-14] MEDS ORDERED: HURRICAINE EXT TUBE (BENZOCAINE) ONE (15:20)
[2019-02-14] MEDS ORDERED: fentaNYL INJECTION 100 MCG/2 ML AMP ONE (15:20)
[2019-02-14] MEDS ORDERED: MIDAZOLAM 5 MG/5 ML (VERSED) VIAL ONE ×2 (15:20→15:41)
[2019-02-14] MEDS ORDERED: LIDOCAINE JELLY 2% 6 ML SYRINGE ONE (15:20)
[2019-02-14] MEDS: MIDAZOLAM 5 MG/5 ML (VERSED) VIAL IV PRN ×6 (15:30→15:45)
[2019-02-14] MEDS ORDERED: NS IV 500 ML 500 ML IV PRN (15:34)
[2019-02-14] MEDS ORDERED: fentaNYL INJECTION 100 MCG/2 ML AMP IVP ONE (15:45)
[2019-02-14] MEDS ORDERED: HURRICAINE EXT TUBE (BENZOCAINE) XX PRN (15:45)
[2019-02-14] MEDS ORDERED: LIDOCAINE JELLY 2% 6 ML SYRINGE MM PRN (15:45)
--- NOTE | 2019-02-14 16:35 | Progress Note-Post Operative ---
Post-Operative Progess Note Surgeon (s)/Sawing And Assembly Supervisor (s) Surgeon ALTAGRACIA LIM MD Sawing And Assembly Supervisor: none Pre-Operative Diagnosis GERD, regurgitation, substernal pain. Post-Operative Diagnosis reflux esophagitis(stage 2-3), dilated esophagus, clinical velazco's esophagus, inferior band slippage, mild-moderate gastritis. Procedure & Operative Findings Date of Procedure 02/14/19 Procedure Performed/Findings EGD with bx. Anesthesia Type cs Estimated Blood Loss Estimated blood loss (mL): minimal Specimens/Packing Specimens Removed ge jxn, antrum ALTAGRACIA LIM MD Feb 14, 2019 16:35
--- NOTE | 2019-03-02 01:12 | OPERATIVE REPORT ---
DATE OF SERVICE: 02/14/2019 ADMITTING PHYSICIAN: Sundar Newberry MD PREOPERATIVE DIAGNOSES: Nausea and vomiting, epigastric and substernal pain. POSTOPERATIVE DIAGNOSES: Reflux esophagitis between stage II and III, clinical Duran's esophagus, dilated esophagus, inferior band slippage, moderate gastritis. PROCEDURE: EGD with biopsy. SURGEON: Altagracia Lim MD. ANESTHESIA: Conscious sedation. ESTIMATED BLOOD LOSS: Minimal. FINDINGS: Reflux esophagitis between stage II and III, clinical Duran's esophagus, dilated esophagus, inferior band slippage, moderate gastritis. DISPOSITION: The patient tolerated the procedure well. INDICATIONS: The patient is a 43-year-old female who we have seen before in the past. She has a history of morbid obesity and medical comorbidities including degenerative joint disease and hypertension. She is status post laparoscopic adjustable gastric band with an Bdayan APS band on 03/2008 in [place], [place]. We had seen her in 2008 and 2011 for band adjustments due to proximity. She has never been successful with the band and feels that her restriction was always a very short duration and would feel no restriction even after 24 hours. She states that in the past year, she has developed intermittent episodes of nausea and vomiting, epigastric pain as well as substernal chest pain. This was initially mild; however, has become more significant. She does not report any hematemesis, no coffee ground emesis. DESCRIPTION OF PROCEDURE: The patient was brought to the endoscopy suite, laid in the left lateral decubitus position with head slightly elevated. After adequate IV pain, sedative medications and conscious sedation anesthesia, the mouthpiece was applied. The endoscope was placed in the mouth, visualizing the pharynx and hypopharyngeal region. Vocal cords, epiglottis and vallecula identified and appeared to be normal. Endoscope was gently abated esophageal opening and esophagus insufflated. The endoscope was then advanced to the first, second and third portion of the esophagus at the level of GE junction, a reflux esophagitis between stage II and III identified as well as upward encroachment of the GE junction cephalad consistent with a clinical Duran's esophagus. Biopsies were taken of this region using forceps with visualization of good hemostasis. There is also what appeared to be a larger gastric pouch than usual after an adjustable gastric band placement. The endoscope was able to pass through the band and then endoscope retroflexed visualizing what appeared to be an inferior band slippage. This is the most likely etiology of her intermittent episodes of nausea and vomiting as well as epigastric and substernal pain. She does also have a moderate gastritis of the stomach remnant, no distal obstructions. Biopsy was taken of the antrum to rule out H. pylori. The endoscope was then slowly withdrawn while taking a second look and suctioning of residual air with no additional findings. The patient tolerated the procedure well. We will start her on a PPI acid regional dedicated truck driver as well as recommend the necessary lifestyle and diet accommodation including small and more frequent meals, avoidance of eating at night as well as head elevation while lying supine. It does appear that she does have an inferior band slippage and this was confirmed by a chest x-ray, which was also reviewed. Due to her symptomatology, this would be an indication for removal of the gastric band as well as the subcutaneous adjustable component. Job ID: [id number] DocumentID: [id number] Dictated Date: 03/01/2019 16:33:54 Configuration Management Consultant Date: 03/02/2019 01:11:44 Dictated By: ALTAGRACIA LIM MD
== END 2019-02-14 16:56 | disposition home or self-care (01) ==
LOC: SDC 11:00 → 4TH 11:00 → UNDOADMOB 11:06 → 4TH 11:06 → EDSTATUS 15:58 → UNDODISOB 02-14 16:56 → SDC 02-14 16:56
PROVIDERS: ATTEND Family Medicine
DX: R07.89 Other chest pain (principal); I10 Essential (primary) hypertension; K21.9 Gastro-esophageal reflux disease without esophagitis; K52.9 Noninfective gastroenteritis and colitis, unspecified; G89.29 Other chronic pain; M54.9 Dorsalgia, unspecified; M19.90 Unspecified osteoarthritis, unspecified site; I07.1 Rheumatic tricuspid insufficiency; Z82.49 Family history of ischemic heart disease and other diseases of the circulatory system; Z88.5 Allergy status to narcotic agent; Z79.899 Other long term (current) drug therapy; Z79.1 Long term (current) use of non-steroidal anti-inflammatories (NSAID); Z90.49 Acquired absence of other specified parts of digestive tract; Z90.710 Acquired absence of both cervix and uterus; Z83.3 Family history of diabetes mellitus
CPT/HCPCS: 36415; 71046; 80053; 80061; 83735; 84443; 84484; 85007; 85027; 88305; 88342; 93306; 99211; G0378

== ENCOUNTER → 2021-08-12 | Outpatient (CLI) | payer BC ==
[~2021-08-12] MED LIST changes: +ACET325T38 PO; -ENAL5TAB PO; +ENLP5T PO; +HYDR15SO6 PO; +IBUP-2185 PO; +PANT40TA2 PO; +SUCR1TAB36 PO; +SULF1TAB38 PO
--- NOTE | 2021-08-12 11:20 | Diagnostic Imaging Report ---
INDICATION: Routine screening. COMPARISON: 08/17/2016 and 05/08/2015. TECHNIQUE: 2D and 3D bilateral screening mammography was performed with CAD. FINDINGS: Scattered fibroglandular densities are identified bilaterally. No mass or malignant appearing microcalcifications are seen. The axillae are unremarkable. IMPRESSION: No mammographic features suspicious for malignancy are identified. ACR BI-RADS Category 1: Negative. Result letter will be mailed to the patient. Note: At least 10% of breast cancer is not imaged by mammography. Dictated by: Dictated on workstation # [id number]
== END ==
LOC: RAD 07:30
PROVIDERS: ATTEND Surgery
DX: Z12.31 Encounter for screening mammogram for malignant neoplasm of breast (principal)
CPT/HCPCS: 77063; 77067

== ENCOUNTER 2022-11-24 07:48 | Outpatient (CLI) | payer BC ==
[~2022-11-24] VITALS: Ht 180.3 cm; Wt 130.0 kg
[~2022-11-24 07:48] MED LIST changes: +ENAL-66 PO; -ENLP5T PO
[2022-11-24] MEDS ORDERED: GABA300C PO (09:14)
[2022-11-24] MEDS ORDERED: ROSU20TA73 PO (09:14)
[2022-11-24] MEDS ORDERED: CELE400C PO (09:14)
[2022-11-24] MEDS ORDERED: OMEP20CA18 PO (09:14)
[2022-11-24 09:20] VITALS: BP 135/76
[2022-11-24 09:39] LABS: BILIRUBIN,URINE NEGATIVE (NEGATIVE); CLARITY,URINE CLOUDY; COLOR,URINE YELLOW; GLUCOSE, URINE (UA) NEGATIVE (NEGATIVE); KETONES,URINE NEGATIVE (NEGATIVE); LEUKOCYTE ESTERASE ,URINE NEGATIVE (NEGATIVE); NITRITE,URINE NEGATIVE (NEGATIVE); PROTEIN,URINE NEGATIVE (NEGATIVE)
[2022-11-24 09:50] LABS: AMORPHOUS SEDIMENT,UR MOD AMOR URATES /LPF; BACTERIA,URINE NEGATIVE /HPF; RBC,URINE 0-2 /HPF; WBC,URINE 0-2 /HPF
[2022-11-24 10:04] LABS: BASOPHILS % (AUTO) 1 % (0-10); EOSINOPHILS # (AUTO) 0.3 10^3/uL (0.0-0.3); EOSINOPHILS % (AUTO) 4 % (0-10); HEMATOCRIT 42 % (35-52); HEMOGLOBIN 14.2 g/dL (11.5-16.0); LYMPHOCYTES # (AUTO) 1.5 10^3/uL (1.0-4.0); LYMPHOCYTES % (AUTO) 23 % (12-44); MEAN CORPUSCULAR HEMOGLOBIN 31 pg (25-34); MEAN CORPUSCULAR HGB CONC 34 g/dL (32-36); MEAN CORPUSCULAR VOLUME 93 fL (80-99); MEAN PLATELET VOLUME 9.6 fL (9.0-12.2); MONOCYTES # (AUTO) 0.4 10^3/uL (0.0-1.0); MONOCYTES % (AUTO) 7 % (0-12); NEUTROPHILS # (AUTO) 4.2 10^3/uL (1.8-7.8); NEUTROPHILS % (AUTO) 65 % (42-75); PLATELET COUNT 269 10^3/uL (130-400); WHITE BLOOD COUNT 6.4 10^3/uL (4.3-11.0)
[2022-11-24 10:16] LABS: INR 1.1 (0.8-1.4); PROTHROMBIN TIME PATIENT 14.1 SEC (12.2-14.7)
[2022-11-24 10:25] LABS: ALBUMIN 4.3 GM/DL (3.2-4.5); BILIRUBIN,TOTAL 0.6 MG/DL (0.1-1.0); CREATININE SERUM 0.82 MG/DL (0.60-1.30); TOTAL PROTEIN 7.6 GM/DL (6.4-8.2)
--- NOTE | 2022-11-24 11:14 | Diagnostic Imaging Report ---
Indication: Preop for total knee replacement PA and lateral chest obtained at 1004 a.m. compared to 05/11/2019. Heart and mediastinal silhouette are normal in appearance. The lungs are clear. There is no pneumothorax or pleural fluid. IMPRESSION: Negative chest. Dictated by: Dictated on workstation # [id number]
--- NOTE | 2022-11-24 11:47 | Physical Therapy Pre-Op Eval ---
PT Pre-Surgical Assessment Type of Surgery Type of Surgery: Prior Level of Function Current Living Status: Spouse Locomotion (Upon Admit): Independent Distance: Unlimited PLOF DME: None Will Need FWW post surgery Subjective Home: Single Level Current Living Status: Spouse Entry Into Home: Stairs With Railing Steps Into Home: 1 Steps Accessories: Railing Present Objective Patient reports pain in the left Knee at 1/10 currently.Does not have a FWW at home. Motor Control Motor Control: Motor Control WNL ROM ROM: WFL, except focal deficit Strength Strength: WFL Transfers Transfers (B, C, W/C) (FIM): 6 Gait Gait (FIM): 6 Gait Distance (FIM): 6 Distance: 150' Gait Assistive Device: FWW Right Lower Extremity: Right Full Weight Bearing Left Lower Extremity: Left Full Weight Bearing Treatment Rendered Treatment: Patient instructed in assistive device, supported ambulation. Patient instructed in and given written program of ROM and strengthening exercises to be preformed post-op. Patient instructed in movement precautions where applicable. Patient demonstrates understandings of post-operative therapy protocol including gait pattern and exercise program. Pre-operative instruction completed; await physical therapy orders after surgery. Treatment Goal Met: Yes Assessment Goals Acheived: I Ambulation w/ FWW, Understands P-op Precaut, I Post-op Exercises Charges/GCodes Time In: 900 Time Out: 910 Total Billed Treatment Time: 10 Total Billed Treatment Visit, EBEN ROSS PT Nov 24, 2022 11:47
== END 2022-11-24 11:20 ==
LOC: PREOP 07:48
PROVIDERS: ATTEND Orthopaedic Surgery
DX: Z01.818 Encounter for other preprocedural examination (principal); M17.12 Unilateral primary osteoarthritis, left knee; R53.83 Other fatigue
CPT/HCPCS: 36415; 71046; 80053; 81000; 85025; 85610; 86850; 86900; 86901; 87081; 93005

== ENCOUNTER 2022-12-01 05:55 | Inpatient (IN) | payer BC ==
--- NOTE | 2022-11-26 06:29 | HISTORY AND PHYSICAL ---
This will be for inpatient admission on 12/01/2022 for left total knee arthroplasty. The patient will require regular inpatient admission due to need for pain management and physical therapy. HISTORY: The patient is a 47-year-old active female with complaints of left knee pain that has been progressive in nature to the point where it is interfering with her activities of daily living. Radiographs reveal severe medial and patellofemoral arthrosis. She has undergone treatment with injections as well as arthroscopy. She reports catching and locking in her knee. She understands that at her young age, she is at risk for requiring total knee arthroplasty revision in the future, but due to marked functional impairment, the patient elected to proceed with surgical intervention. REVIEW OF SYSTEMS: No chest pain, no shortness of breath. No dysuria. PAST MEDICAL HISTORY: Unremarkable. PAST SURGICAL HISTORY: Left knee arthroscopy, wisdom tooth extraction, LASIK eye surgery, lumbar spine, tonsillectomy, adenoidectomy, left shoulder arthroscopy, hysterectomy, gastric sleeve, cholecystectomy. FAMILY HISTORY: Cancer, diabetes, hypertension. PRIMARY CARE PROVIDER: Dr. Newberry. No medications. ALLERGIES: CODEINE. SOCIAL HISTORY: The patient denies alcohol and tobacco use. PHYSICAL EXAMINATION: GENERAL: The patient is well-developed, well-nourished, in no acute distress. HEENT: Normocephalic, atraumatic. Pupils equal, round, reactive to light. Oropharynx is clear. NECK: Supple, with no lymphadenopathy. LUNGS: Clear to auscultation bilaterally. HEART: Regular rate and rhythm. ABDOMEN: Soft, nontender, nondistended. EXTREMITIES: The left knee demonstrates marked patellofemoral crepitus. She has pain with patellar loading. She has a moderate effusion noted. There is no erythema or warmth. She is tender along her medial femoral condyle. Range of motion 0/3/125. IMPRESSION: Severe left knee osteoarthritis, unresponsive to conservative measures. PLAN: Left total knee arthroplasty. The risks, benefits, options, ramifications and recovery have been discussed at length with the patient. She understands and wishes to proceed. This is an inpatient admission on 12/01/2022. Job ID: [id number] DocumentID: [id number] Dictated Date: 11/16/2022 11:34:49 Polysomnographic Tech Date: 11/16/2022 15:28:00 Dictated By: TRISTAN PEREZ MD
[2022-12-01] VITALS (11 sets, daily range): BP systolic 108–153; BP diastolic 68–87
[~2022-12-01] VITALS: Ht 180.3 cm; Wt 130.0 kg
[~2022-12-01 05:55] MED LIST changes: +CELE400C PO; +GABA300C PO; +OMEP20CA18 PO; +ROSU20TA73 PO
--- OUTSIDE RECORDS SUMMARY | 2022-12-01 05:59 | XMS REPORT | Clinical Summary ---
Author Author [facility] Organization [facility] Address Unknown Phone Unavailable Care Team Providers Care Preventive Medicine Physician Name Role Phone PCP Unavailable Source Comments [facility] (Labor and Delivery) documents do not appear in the [facility] Allergies Not on File Medications Please verify current medications with patient. Not on file Active Problems Not on file Social History Date Tobacco Use Types Packs/Day Years Used Smoking Tobacco: Never Assessed Sex Assigned at Date Recorded Not on file Last Filed Vital Signs Not on file Plan of Treatment Health Maintenance Due Date Last Done Comments CT Colonography 1974 DNA-based stool test 1974 (Cologuard) Hepatitis B Vaccine (1 of 1974 3 - 3-dose series) Sigmoidoscopy 1974 gFOBT or FIT 1974 COVID-19 Vaccine (#1) 01/24/1975 Colonoscopy 07/25/2019 Colorectal Cancer 07/25/2019 Screening Influenza Vaccine (#1) 2023 HPV Vaccine Aged Out No longer eligible based on patient's age to complete this topic Hepatitis A Vaccine Aged Out No longer eligible based on patient's age to complete this topic Hib Vaccine Aged Out No longer eligible based on patient's age to complete this topic IPV Vaccine Aged Out No longer eligible based on patient's age to complete this topic Meningococcal Vaccine Aged Out No longer eligib le based on patient's age to (MCV4) complete this topic Pneumococcal Vaccine: Aged Out No longer eligib le based on patient's age to Pediatrics (0 to 5 Years) complete this topic and At-Risk Patients (6 to 64 Years) Rotavirus Vaccine Aged Out No longer eligible based on patient's age to complete this topic Results Not on filefrom Last 3 Months
[2022-12-01] MEDS: LACTATED RINGERS 1,000 ML IV PRN ×2 (06:39→08:10)
[2022-12-01] MEDS ORDERED: CEFUROXIME 1.5 GM VIAL ONE (06:43)
[2022-12-01] MEDS ORDERED: NS (IVPB) 50 ML 50 ML ONE (06:43)
[2022-12-01] MEDS ORDERED: CEFUROXIME INJECTION 1,500 MG in NS (IVPB) 50 ML 50 ML IV ONE (06:45)
[2022-12-01] MEDS ORDERED: PROPOFOL INJECTION 50 ML IV ONE (06:50)
[2022-12-01] MEDS ORDERED: fentaNYL INJECTION 100 MCG/2 ML VIAL ONE (06:51)
[2022-12-01] MEDS ORDERED: MIDAZOLAM 2 MG/2 ML (VERSED) VIAL ONE (06:51)
[2022-12-01] MEDS ORDERED: CATHETER FLUSH 10 ML SYR IVP PRN (07:00)
[2022-12-01] MEDS ORDERED: ONDANSETRON 4 MG/2 ML (SDV) Z0FRAN IVP PRN ×2 (07:15→10:00)
[2022-12-01] MEDS ORDERED: NALOXONE 0.4 MG/ML 1 ML (NARCAN) VIAL IV PRN (07:15)
[2022-12-01] MEDS ORDERED: diphenhydrAMINE INJ 50 MG/ML VIAL IVP PRN (07:15)
--- NOTE | 2022-12-01 07:32 | Progress Note-Pre Operative ---
Pre-Operative Progress Note Date of Available H&P: Nov 26, 2022 Date H&P Reviewed: Dec 01, 2022 Time H&P Reviewed: 07:11 Changes from last HP none Pre-Operative Diagnosis: left knee primary osteaoarthritis TRISTAN PEREZ MD Dec 01, 2022 07:32
--- NOTE | 2022-12-01 07:33 | Progress Note-Post Operative ---
Post-Operative Progess Note Surgeon (s)/Justice Of The Peace (s) Surgeon TRISTAN PEREZ MD Justice Of The Peace: Daniel Ugarte Pre-Operative Diagnosis left knee primary osteaoarthritis Post-Operative Diagnosis left knee primary osteaoarthritis Procedure & Operative Findings Date of Procedure 12/01/22 Procedure Performed/Findings left total knee arthroplasty Anesthesia Type spinal Estimated Blood Loss Estimated blood loss (mL): minimal Specimens/Packing Specimens Removed none Packing: none TRISTAN PEREZ MD Dec 01, 2022 07:33
--- NOTE | 2022-12-01 07:35 | D/C HH Face to Face Order ---
D/C Face to Face Orders Reconcile Patient Problems Problems Reviewed?: Yes Instructions for Patient [facility], Patient Instructions/FollowUp: three weeks Physician to follow Patient: three weeks Discharge Diet for Home: Regular Diet Patient Data-Allergies,Ht & Wt Patient Allergies: Coded Allergies: codeine (Verified Allergy, Intermediate, GI UPSET, 12/01/22) morphine (Verified Allergy, Intermediate, Hives, 12/01/22) Height (Feet): 6 Height (Inches): 0.00 Weight (Pounds): 300 Weight (Ounces): 7.0 Home Health Need/Face to Face Date of Face to Face: Dec 01, 2022 Clinical Findings: Muscle weakness, Pain with ambulation, Unsteady gait I have seen Pt hljp-ch-tiic: Yes Discharged To: Home Diagnosis/Conditions: left total knee arthroplasty Patient is Homebound due to: Muscle weakness, Pain w/ambulation Homebound Status Due to the above stated illness, injury or surgical procedure (medical condition or diagnosis) and associated clinical findings, the patient is homebound because of his/her inability to leave home except with aid of a supportive device and/or person AND leaving the home requires a considerable and taxing effort or is medically contraindicated. Pt req the following assistanc: Walker [facility] Health Nursing Orders Home Health Services Order: Physical Therapy-Evaluate & Treat DC left knee kit and apply steri strips 12/15/22 Home Health Infusion Therapy Line Start Date: Dec 01, 2022 Therapy Orders Therapy Orders: Physical Therapy, PT to assess for OT Therapy Specific Orders: Eval assistive deivces, Teach enviro jeremy fications/safety, Gait training, Increase strength/endurance, Provider maintenance therapy, Restore ROM Certify Stmt I certify that this patient is under my care and that I, a nurse practitioner or a physician; a orthodontic assistant working with me, had a face to face encounter that - meets the physician face to face encounter requirements with this patient as dated. TRISTAN PEREZ MD Dec 01, 2022 07:35
[2022-12-01] MEDS ORDERED: INTRA-ARTICULAR IU ONE ×4 (08:15)
[2022-12-01] MEDS ORDERED: LIDOCAINE PF 2% 5 ML (XYLOCAINE) VIAL ONE (08:33)
[2022-12-01] MEDS ORDERED: ROPIVACAINE 5MG/ML 30ML VIAL ONE (08:33)
[2022-12-01] MEDS ORDERED: BUPIVACAINE 0.5% 30 ML VIAL ONE (08:41)
[2022-12-01] MEDS ORDERED: TRANEXAMIC ACID 100 MG/ML 10 ML INJECTION ONE (08:41)
[2022-12-01] MEDS ORDERED: PROPOFOL INJECTION 100 ML IV ONE (08:41)
[2022-12-01] MEDS: GABAPENTIN 300 MG CAPSULE PO SCH ×2 (09:00→20:18)
[2022-12-01] MEDS ORDERED: MEPERIDINE (DEMEROL) INJ 50 MG/ML IVP ONE (10:00)
[2022-12-01] MEDS ORDERED: fentaNYL INJECTION 100 MCG/2 ML VIAL IVP ONE (10:00)
--- NOTE | 2022-12-01 10:12 | Diagnostic Imaging Report ---
Indication: Left knee arthroplasty. Time of Exam: 10 0 4:00 AM 2 views left knee demonstrate postoperative changes of total knee arthroplasty. Prosthetic elements are in good noted position without fracture or loosening. There are overlying skin kit. IMPRESSION: Satisfactory postop left knee. Dictated by: Dictated on workstation # [id number]
[2022-12-01] MEDS: oxyCODONE/ACETAMINOPHEN 5/325MG TABLET PO PRN ×3 (15:06→22:40)
--- NOTE | 2022-12-01 15:37 | Physical Therapy Evaluation ---
PT Evaluation-General Medical Diagnosis Admission Date Dec 01, 2022 at 05:55 Medical Diagnosis: Left TKA Onset Date: Dec 01, 2022 Therapy Diagnosis Therapy Diagnosis: Gait deficit, strength deficit Height/Weight Height (Feet): 6 Height (Inches): 0.00 Weight (Pounds): 300 Weight (Ounces): 7.0 Precautions Precautions/Isolations: Fall Prevention, Standard Precautions Weight Bear Status Right Lower Extremity: Right Full Weight Bearing Left Lower Extremity: Left Weight Bearing/Tolerated Referral Physician: Dr. Roldan Reason for Referral: Evaluation/Treatment Medical History Reviewed History: Yes Social History Home: Single Level Current Living Status: Spouse Entry Into Home: Stairs With Railing PT Steps Into Home: 1 Prior Prior Level of Function SCALE: Activities may be completed with or without assistive devices. 1-Mhauwctygi-dxghhed completes the activity by him/herself with no assistance from a helper. 5-Set-up or Clean-up Assistance-helper sets up or cleans up; patient completes activity. [place] assists only prior to or following the activity. 4-Supervision or Touching Assistance-helper provides verbal cues and/or touching/steadying and/or contact guard assistance as patient completes activity. Assistance may be provided throughout the activity or intermittently. 3-Partial/Moderate Assistance-helper does LESS THAN HALF the effort. Greenwood li fts, holds or supports trunk or limbs, but provides less than half the effort. 2-Substantial/Maximal Assistance-helper does MORE THAN HALF the effort. [place] lifts or holds trunk or limbs and provides more than half the effort. 6-Pzijxhvmt-mapnsl does ALL the effort. Patient does none of the effort to complete the activity. Or, the assistance of 2 or more helpers is required for the patient to complete the activity. If activity was not attempted, code reason: 7-Patient Refused. 9-Not Applicable-not attempted and the patient did not perform the activity before the current illness, exacerbation or injury. 10-Not Attempted due to Environmental Limitations-(lack of equipment, weather restraints, etc.). 88-Not Attempted due to Medical Conditions or Safety Concerns. Bed Mobility: 6 Transfers (B,C,W/C): 6 Gait: 6 Stairs: 6 Indoor Mobility (Ambulation): Independent Stairs: Independent Prior Devices Use: None Has FWW at home PT Evaluation-Current Subjective Patient lying supine in bed upon PT arrival, agreeable to treatment. Patient rates pain at 3-4/10 in left knee. Objective Patient Orientation: Person, Place, Time, Situation Attachments: Polar Pack, IV ROM/Strength ROM Lower Extremities Left knee 20 degrees from neutral extension and 75 degrees flexion. All other ROMs BLEs all planes WFLs Strength Lower Extremities Left knee flexion 3-/5, knee extension 3-/5. All other planes 5/5 bilaterally. Sensory Vision: Functional Hearing: Functional Sensation Right Lower Extremit: Intact Sensation Left Lower Extremity: Intact Transfers Roll Left to Right (QC): 4 Sit to Lying (QC): 4 Lying to Sitting/Side of Bed(Q: 4 Sit to Stand (QC): 3 Chair/Opo-tk-Fhpke Xfer(QC): 3 Toilet Transfer (QC): 3 Gait Does the Patient Walk?: Yes Mode of Locomotion: Walk Anticipated Mode of Locomotion: Walk Walk 10 feet (QC): 3 Distance: 15' x 2 Gait Assistive Device: FWW Balance Sitting Static: Good Sitting Dynamic: Good Standing Static: Fair Standing Dynamic: Fair Assessment/Needs Patient tolerated treatment fair. She performs all observed bed mobility and transfers with min to SBA. Patient ambulates 15 feet with FWW x 2, with min and verbal cues for control of left LE, gait pattern and control of FWW. Patient in chair post treatment with all needs met, nursing notified, call light in hand, in the room. Rehab Potential: Good PT Mcfp Goals Adult School Teacher Goals PT Mcfp Goals Time Frame: Dec 30, 2022 Roll Left & Right (QC): 6 Sit to Lying (QC): 6 Lying-Sitting on Side/Bed(QC): 6 Sit to Stand (QC): 6 Chair/Zjy-oo-Imjdl Xfer(QC): 6 Toilet Transfer (QC): 6 Does the Patient Walk: Yes Walk 10 feet (QC): 5 Walk 50ft with 2 Turns (QC): 5 Walk 150 ft (QC): 5 1 Step (curb) (QC): 4 4 Steps (QC): 4 12 Steps (QC): 4 PT Plan Problem List Problem List: Activity Tolerance, Functional Strength, Safety, Balance, Gait, Transfer, Bed Mobility, ROM Treatment/Plan Treatment Plan: Continue Plan of Care Treatment Plan: Bed Mobility, Education, Functional Activity Steve, Functional Strength, Group Therapy, Gait, Safety, Therapeutic Exercise, Transfers Treatment Duration: Dec 30, 2022 Frequency: 11 times per week Estimated Hrs Per Day: .25 hour per day Patient and/or Family Agrees t: Yes Safety Risks/Education Patient Education: Gait Training, Transfer Techniques Teaching Recipient: Patient Teaching Methods: Demonstration, Discussion Response to Teaching: Verbalize Understanding, Return Demonstration Time Time In: 1341 Time Out: 1410 DATE: Dec 01, 2022 Total Billed Treatment Time: 29 Total Billed Treatment Visit, FERNANDA ANDREWS JOHN A PT Dec 01, 2022 15:37
--- NOTE | 2022-12-01 15:41 | OPERATIVE REPORT ---
DATE OF SERVICE: 12/01/2022 PREOPERATIVE DIAGNOSIS: Left knee primary osteoarthritis. POSTOPERATIVE DIAGNOSIS: Left knee primary osteoarthritis. PROCEDURE: Left total knee arthroplasty. SURGEON: Catracho Perez MD BRICK CHIMNEY SUPERVISOR: Daniel Ugarte, who assisted throughout the procedure and closed the incision. ANESTHESIA: Spinal by Daniel Chavez CRNA. TOURNIQUET TIME: 75 minutes at 300 mmHg. ESTIMATED BLOOD LOSS: Minimal. DRAINS: None. COMPLICATIONS: None. POSTOPERATIVE PLAN: Routine protocol. The patient was transported to the recovery room awake and in stable condition. MATERIALS: MicroPort cemented size 6 femur, cemented size 6 tibia with 10 mm insert and cemented size 32 patellar button. STATEMENT OF MEDICAL NECESSITY: The patient is a 47-year-old female with longstanding progressively worsening left knee pain. She has undergone treatment with injections, anti-inflammatories, rest and activity modifications without relief. Radiographs revealed severe tricompartmental osteoarthritis. Due to functional impairment and failure to improve with conservative measures, the patient elected to proceed with surgical intervention. DESCRIPTION OF PROCEDURE: After risks and benefits of the procedure were discussed and questions were answered and informed consent was signed and placed on the chart, the operative site was confirmed in the preoperative holding area initialed by surgeon. The patient was then transported to the operating room and after adequate levels of spinal anesthetic was obtained, a timeout was called, confirming the operative site. The left lower extremity was prepped and draped in the usual sterile fashion with the leg elevated and the knee flexed and tourniquet inflated to 300 mmHg. Standard anterior approach was utilized. Hemostasis was obtained with cautery. A medial parapatellar arthrotomy was performed, leaving 1 cm cuff on the patella for later reattachment. A portion of the fat pad was resected. There was a large osteophyte in the anterior fat pad, which was resected. The ACL was resected. Intramedullary guide was passed into the femoral canal. The distal cutting block was placed. Distal cut was made. The femur sized to a size 6, six cutting block was placed parallel to the epicondylar axis and cuts were made from posterior to anterior. Subperiosteal release was then carefully performed on the posterior distal femur, being careful to stay on the bony surface. Intramedullary guide was then passed into the tibia. The cutting block was placed. Drop gaston transected the intermalleolar axis and the cut was made. The 6 baseplate was placed. The drop gaston transected the intermalleolar axis. This was then prepared with the drill and keel punch. The femoral trial was placed and trochlear cut was made. The patella was then prepared by resecting 10 mm off the undersurface. The peg guide was placed and peg holes were drilled. The trials were inserted, 10 mm insert was placed. Full extension was easily obtained, 120 degrees of flexion with gravity was easily obtained. The patella tracked well. There is no anterior/posterior or medial/lateral laxity in flexion or extension. The trials were removed. The joint was irrigated with pulse lavage. The periarticular block was placed in the posterior capsule, medial and lateral retinaculum extensor mechanism and subcutaneous tissues. The bone ends were further irrigated. The tibial prosthesis was cemented into position. Excessive cement was removed. The superior surface was irrigated and dried and the polyethylene insert was placed. The distal femur was irrigated and dried and the femoral prosthesis was cemented in position. Excessive cement was removed. The knee was brought out into full extension and held until the cement had cured. The undersurface of the patella was irrigated and dried. The patellar button was cemented into position. Excessive cement was removed. Once the cement had cured, the knee was taken through range of motion. Full extension was easily obtained, 120 degrees of flexion with gravity was easily obtained. The patella tracked well. There was no anterior/posterior or medial/lateral laxity in flexion or extension. IrriSept was used for irrigation throughout the procedure as well. After copiously irrigating the joint, the arthrotomy was closed with #2 Tevdek in plziwm-bg-npyps interrupted fashion. The knee was flexed. Repair was stable. The patella tracked well. Subcutaneous tissues were irrigated using a total of 6 liters throughout the procedure. 0 Vicryl was used to reapproximate the deep subcutaneous layer, 2-0 Vicryl for the superficial subcutaneous layer, kit used on the skin. A soft dressing was applied. The tourniquet was deflated. The patient was transferred to the recovery room awake and in stable condition. Job ID: [id number] DocumentID: [id number] Dictated Date: 12/01/2022 09:50:46 School Bus Driver/Teacher Assistant Date: 12/01/2022 15:39:00 Dictated By: CATRACHO EPREZ MD
[2022-12-01] MEDS: CEFUROXIME INJECTION 750 MG in NS (IVPB) 50 ML 50 ML IV SCH (16:13)
--- NOTE | 2022-12-01 18:27 | Consultation - Hospitalist ---
HPI History of Present Illness: HPI/Chief Complaint Cyn Arias is a 47 year old female with PMH osteoarthritis, GERD, HLD, morbid obesity, who was admitted after a scheduled total knee arthroplasty. She underwent the procedure this morning with Dr. Roldan. The hospitalist service has been consulted for co-management. She was seen post-operatively. She is doing well. She denies pain. She has not been out of bed yet. She has been tolerating clears without issue. She has ordered lunch. She has no complaints. Source: patient Exam Limitations: no limitations Date Seen 12/01/22 Attending Physician Sundar Newberry MD PCP Admitting Physician: Catracho Roldan MD Attending Physician: Catracho Roldan MD Referring Physician Date of Admission Dec 01, 2022 at 05:55 Home Medications & Allergies Home Medications Reviewed patient Home Medication Reconciliation performed by pharmacy medication reconciliations warehouse technician and/or nursing. Patients Allergies have been reviewed. Allergies Allergies Coded Allergies morphine (Verified Allergy, Intermediate, Hives, 12/01/22) PER PT RECORD, PATIENT HAS HAD LORTAB AND DILAUDID IN THE PAST codeine (Verified Adverse Reaction, Intermediate, GI UPSET, 12/01/22) Past Rbrhshk-Ahdhvz-Apbcou Hx Patient Social History Tobacco Use?: No Smoking Status: Never a Smoker Smokeless Tobacco Frequency: Never a User Use of E-Cig and/or Vaping Shaq: Never a User Substance use?: No Alcohol Use?: Yes Alcohol type: Beer Alcohol Frequency: Rarely Pt feels they are or have been: No Immunizations Up To Date Date of Influenza Vaccine: Feb 12, 2013 Tetanus Booster (TDap): Unknown Hepatitis A: Yes Hepatitis B: Yes PED Vaccines UTD: No Seasonal Allergies Seasonal Allergies: No Current Status status: No status: No Advance Directives: No Advance Directive Location: Home Communicates: Verbally Primary Language: Mozambican Preferred Spoken Language: Mozambican Is interpretation needed?: No Implanted or Applied Medical D: None Past Medical History Surgeries: Abdominal, Adenoidectomy, Gallbladder, Hysterectomy, Orthopedic, Tonsillectomy Currently Using CPAP: No Currently Using BIPAP: No High Cholesterol, Hypertension ASSOCIATE PROGRAM MANAGER History: Hysterectomy Sexually Transmitted Disease: No HIV/AIDS: No Gastroesophageal Reflux, Chronic Diarrhea, Gall Bladder Disease Degenerate Disk Disease, Arthritis, Chronic Back Pain Loss of Vision: Denies Hearing Impairment: Denies Blood Disorders: No Adverse Reaction/Blood Tranf: No (N/A) Family Medical History Abdominal aortic aneurysm Hypercholesterolemia G8 BROTHER Hypertension G8 BROTHER Myocardial infarction 19 FATHER Heart Disease, Hypertension PAST SURGERIES: TONSILLECTOMY CHOLECYSTECTOMY HYSTERECTOMY/OVARIES INTACT CYSTOCOELE/RECTOCOELE REPAIR BACK SURGERY--L4-L5 DISCECTOMY LEFT SHOULDER -REPAIR OF TORN LABRUM LAP BAND PLACED 2008 IN [place] LAP BAND REMOVED AND HAD GASTRIC SLEEVE GASTRECTOMY 04/13/19 IN [facility] Review of Systems Constitutional: no symptoms reported Respiratory: no symptoms reported Cardiovascular: no symptoms reported Gastrointestinal: no symptoms reported Physical Exam Physical Exam Vital Signs Vital Signs - First Documented 12/01/22 06:20 Temp 36.4 Pulse 53 Resp 18 B/P (MAP) 131/81 (98) Pulse Ox 97 O2 Delivery Room Air Capillary Refill : Height, Weight, BMI Height: 6'0.00" Weight: 300lbs. 7.0oz. [id number]; 39.99 BMI Method: General Appearance: No Apparent Distress, Obese Respiratory: Lungs Clear, No Respiratory Distress Cardiovascular: Regular Rate, Rhythm, No Murmur Gastrointestinal: Normal Bowel Sounds, Soft Extremity: Non Tender, No Pedal Edema Neurologic/Psychiatric: Alert, Normal Mood/Affect Skin: Normal Color, Warm/Dry Results Results/Procedures Labs Patient resulted labs reviewed. Imaging: Reviewed Imaging Report Assessment/Plan Assessment and Plan Assess & Plan/Chief Complaint s/p TKA OA Dr. Roldan primary Pain regimen Bowel regimen Incentive spirometry Lovenox PT/OT GERD HLD Morbid obesity Continue home meds as able Thank you for the consult. Please contact the hospitalist bonding supervisor with any questions or concerns. Diagnosis/Problems Diagnosis/Problems (1) Osteoarthritis of left knee Status: Acute Qualifiers: Osteoarthritis type: primary Qualified Codes: M17.12 - Unilateral primary osteoarthritis, left knee (2) S/P total knee arthroplasty Status: Acute Qualifiers: Laterality: left Qualified Codes: Z96.652 - Presence of left artificial knee joint (3) HLD (hyperlipidemia) Status: Chronic (4) GERD (gastroesophageal reflux disease) Status: Chronic (5) Morbid obesity Status: Chronic RAHEL KUMARI MD Dec 01, 2022 18:27
[2022-12-01] MEDS: ONDANSETRON 4 MG/2 ML (SDV) Z0FRAN IVP PRN ×2 (20:18→23:14)
[2022-12-01] MEDS ORDERED: ROSUVASTATIN 20 MG (CRESTOR) TABLET PO SCH (21:00)
[2022-12-01] MEDS: DOCUSATE SODIUM 100 MG CAPSULE PO SCH (21:41)
[2022-12-01] MEDS: SENNOSIDES 8.6 MG (SENOKOT) TAB PO SCH (21:41)
[2022-12-02] MEDS: CEFUROXIME INJECTION 750 MG in NS (IVPB) 50 ML 50 ML IV SCH (00:53)
[2022-12-02] MEDS: ONDANSETRON 4 MG/2 ML (SDV) Z0FRAN IVP PRN ×3 (03:09→12:55)
[2022-12-02] MEDS: fentaNYL INJECTION 100 MCG/2 ML VIAL IVP PRN ×4 (03:09→13:15)
[2022-12-02 04:52] VITALS: BP 135/84
[2022-12-02 07:23] VITALS: BP 155/83
--- NOTE | 2022-12-02 07:37 | Progress Note ---
Standard Progress Note Progress Notes/Assess & Plan Date Seen by a Provider: Dec 02, 2022 Time Seen by a Provider: 07:30 Progress/Assessment & Plan c/o nausea Vital Signs Date Time Temp Pulse Resp B/P (MAP) Pulse Ox O2 Delivery O2 Flow Rate FiO2 12/02/22 07:23 36.3 68 18 155/83 (107) 98 Room Air 12/02/22 04:52 36.3 60 18 135/84 (101) 97 Room Air 12/01/22 23:16 36.4 63 18 137/83 (101) 96 Room Air 12/01/22 21:00 Room Air 12/01/22 19:56 37.1 73 18 153/87 (109) 97 Room Air 12/01/22 17:17 Room Air 12/01/22 15:57 37.3 59 16 147/83 (104) 99 Room Air 12/01/22 11:56 36.7 52 20 126/82 (97) 100 Room Air 12/01/22 10:40 100 Room Air 12/01/22 10:36 Room Air 12/01/22 10:30 36.6 16 125/78 (94) 100 Room Air 12/01/22 10:20 14 113/71 (85) 100 Room Air 12/01/22 10:15 Room Air 12/01/22 10:10 14 126/71 (89) 100 Room Air 12/01/22 10:00 Room Air 12/01/22 10:00 16 111/77 (88) 98 Room Air 12/01/22 09:50 20 108/68 (81) 100 OxyMask 2.00 12/01/22 09:47 36.7 16 112/70 (84) 100 OxyMask 2.00 12/01/22 09:47 OxyMask 2.00 I & O 12/02/22 07:00 Intake Total 4800 ml Balance 4800 ml radiographs--HW well positioned without fracture LLE--intact DF and PF of toes and ankle 2 plus DP pulse with brisk cap refill sensation intact to light touch throughout s/p LTKA PT/OT zofran changed to fentanyl for pain meds TRISTAN PEREZ MD Dec 02, 2022 07:37
--- NOTE | 2022-12-02 08:05 | Physical Therapy Daily Note ---
PT Daily Note-Current Subjective Patient agrees to PT. C/o of nausea and vomiting with 9/10 left knee pain. Pain Numeric Pain Scale: 9 Location: Left Location Body Site: Knee Pain Description: Acute Section J - Health Conditions 1. Rarely or not at all 2. Occasionally 3. Frequently 4. Almost constantly 8. Unable to answer Pain Effect on Sleep: 2 Pain Interference with Therapy: 2 Pain Interference w/Day-to-Day: 2 Mental Status Patient Orientation: Normal For Age Transfers SCALE: Activities may be completed with or without assistive devices. 8-Exzbubssso-simuoxb completes the activity by him/herself with no assistance from a helper. 5-Set-up or Clean-up Assistance-helper sets up or cleans up; patient completes activity. [place] assists only prior to or following the activity. 4-Supervision or Touching Assistance-helper provides verbal cues and/or touching/steadying and/or contact guard assistance as patient completes activity. Assistance may be provided throughout the activity or intermittently. 3-Partial/Moderate Assistance-helper does LESS THAN HALF the effort. [place] lifts, holds or supports trunk or limbs, but provides less than half the effort. 2-Substantial/Maximal Assistance-helper does MORE THAN HALF the effort. [place] lifts or holds trunk or limbs and provides more than half the effort. 4-Shcjpcejq-lrvhdr does ALL the effort. Patient does none of the effort to complete the activity. Or, the assistance of 2 or more helpers is required for the patient to complete the activity. If activity was not attempted, code reason: 7-Patient Refused. 9-Not Applicable-not attempted and the patient did not perform the activity before the current illness, exacerbation or injury. 10-Not Attempted due to Environmental Limitations-(lack of equipment, weather restraints, etc.). 88-Not Attempted due to Medical Conditions or Safety Concerns. Lying to Sitting/Side of Bed(Q: 6 Sit to Stand (QC): 4 Chair/Hyl-pw-Fgabp Xfer(QC): 4 Weight Bearing Right Lower Extremity: Right Full Weight Bearing Left Lower Extremity: Left Weight Bearing/Tolerated Gait Training Distance: 150' Walk 10 feet (QC): 4 Walk 50 ft with 2 Turns(QC): 4 Walk 150 ft (QC): 4 Gait Assistive Device: FWW slow, antalgic, step to gait sequence Exercises Supine Ex: Ankle pumps, Quad Set, Heel Slides, Straight leg raise Supine Reps: 15 Seated Therapy Exercises: Long arc quads Seated Reps: 5 Assessment Patient requires time to perform activity due to nausea. Patient progressing with treatment plan and is up in recliner with needs met. PT Longterm Goals Longterm Goals PT Heat Treater Head Goals Time Frame: Dec 30, 2022 Roll Left & Right (QC): 6 Sit to Lying (QC): 6 Lying-Sitting on Side/Bed(QC): 6 Sit to Stand (QC): 6 Chair/Jyh-zc-Oqsxl Xfer(QC): 6 Toilet Transfer (QC): 6 Does the Patient Walk: Yes Walk 10 feet (QC): 5 Walk 50ft with 2 Turns (QC): 5 Walk 150 ft (QC): 5 1 Step (curb) (QC): 4 4 Steps (QC): 4 12 Steps (QC): 4 PT Plan Treatment/Plan Treatment Plan: Continue Plan of Care Treatment Plan: Bed Mobility, Education, Functional Activity Steve, Functional Strength, Group Therapy, Gait, Safety, Therapeutic Exercise, Transfers Treatment Duration: Dec 30, 2022 Frequency: 11 times per week Estimated Hrs Per Day: .25 hour per day Patient and/or Family Agrees t: Yes Time Time In: 720 Time Out: 749 DATE: Dec 02, 2022 Total Billed Treatment Time: 29 Total Billed Treatment 1 visit EX 15 min GT 14 min SARAH HILTON PT Dec 02, 2022 08:05
[2022-12-02] MEDS: SENNOSIDES 8.6 MG (SENOKOT) TAB PO SCH ×2 (08:23→20:08)
[2022-12-02] MEDS: CELECOXIB 100 MG CAPSULE PO SCH ×2 (08:23→20:09)
[2022-12-02] MEDS: ASPIRIN enteric coated 81MG TABLET PO SCH (08:23)
[2022-12-02] MEDS: GABAPENTIN 300 MG CAPSULE PO SCH ×2 (08:23→20:08)
[2022-12-02] MEDS: ROSUVASTATIN 20 MG (CRESTOR) TABLET PO SCH (08:23)
[2022-12-02] MEDS: DOCUSATE SODIUM 100 MG CAPSULE PO SCH ×2 (08:23→20:08)
[2022-12-02] MEDS: ENOXAPARIN 30 MG/0.3 ML SYRINGE SC SCH ×2 (08:24→20:08)
[2022-12-02] MEDS: oxyCODONE/ACETAMINOPHEN 5/325MG TABLET PO PRN ×4 (10:17→23:22)
[2022-12-02 11:23] VITALS: BP 131/82
--- NOTE | 2022-12-02 13:58 | Physical Therapy Daily Note ---
PT Daily Note-Current Subjective Patient agrees to PT. Requests pain medication prior. RN issued IV. Pain Section J - Health Conditions 1. Rarely or not at all 2. Occasionally 3. Frequently 4. Almost constantly 8. Unable to answer Pain Effect on Sleep: 2 Pain Interference with Therapy: 2 Pain Interference w/Day-to-Day: 2 Mental Status Patient Orientation: Normal For Age Transfers SCALE: Activities may be completed with or without assistive devices. 7-Ukhvcueyhk-lgyleyo completes the activity by him/herself with no assistance from a helper. 5-Set-up or Clean-up Assistance-helper sets up or cleans up; patient completes activity. [place] assists only prior to or following the activity. 4-Supervision or Touching Assistance-helper provides verbal cues and/or touching/steadying and/or contact guard assistance as patient completes activity. Assistance may be provided throughout the activity or intermittently. 3-Partial/Moderate Assistance-helper does LESS THAN HALF the effort. [place] lifts, holds or supports trunk or limbs, but provides less than half the effort. 2-Substantial/Maximal Assistance-helper does MORE THAN HALF the effort. [place] lifts or holds trunk or limbs and provides more than half the effort. 9-Pvdzdjijf-ussxth does ALL the effort. Patient does none of the effort to complete the activity. Or, the assistance of 2 or more helpers is required for the patient to complete the activity. If activity was not attempted, code reason: 7-Patient Refused. 9-Not Applicable-not attempted and the patient did not perform the activity before the current illness, exacerbation or injury. 10-Not Attempted due to Environmental Limitations-(lack of equipment, weather restraints, etc.). 88-Not Attempted due to Medical Conditions or Safety Concerns. Sit to Lying (QC): 6 Lying to Sitting/Side of Bed(Q: 6 Sit to Stand (QC): 6 Weight Bearing Right Lower Extremity: Right Full Weight Bearing Left Lower Extremity: Left Weight Bearing/Tolerated Gait Training Distance: 250' Walk 10 feet (QC): 6 Walk 50 ft with 2 Turns(QC): 6 Walk 150 ft (QC): 6 Gait Assistive Device: FWW VC's for reciprocal pattern /slow, antalgic sequence Exercises Supine Ex: Ankle pumps, Quad Set, Heel Slides, Straight leg raise Supine Reps: 15 Assessment Patient progressing with treatment plan and returned to bed with polar pack in place. Patient continues with left calf tightness. PT Shade Matcher Goals Shade Matcher Goals PT [place]ade Matcher Goals Time Frame: Dec 30, 2022 Roll Left & Right (QC): 6 Sit to Lying (QC): 6 Lying-Sitting on Side/Bed(QC): 6 Sit to Stand (QC): 6 Chair/Spv-dw-Cgnul Xfer(QC): 6 Toilet Transfer (QC): 6 Does the Patient Walk: Yes Walk 10 feet (QC): 5 Walk 50ft with 2 Turns (QC): 5 Walk 150 ft (QC): 5 1 Step (curb) (QC): 4 4 Steps (QC): 4 12 Steps (QC): 4 PT Plan Treatment/Plan Treatment Plan: Continue Plan of Care Treatment Plan: Bed Mobility, Education, Functional Activity Steve, Functional Strength, Group Therapy, Gait, Safety, Therapeutic Exercise, Transfers Treatment Duration: Dec 30, 2022 Frequency: 11 times per week Estimated Hrs Per Day: .25 hour per day Patient and/or Family Agrees t: Yes Time Time In: 1310 Time Out: 1334 DATE: Dec 02, 2022 Total Billed Treatment Time: 24 Total Billed Treatment 1 visit EX 14 min GT 10 min SARAH HILTON PT Dec 02, 2022 13:58
[2022-12-02] MEDS ORDERED: PROMETHAZINE INJ 25 MG/ML (PHENERGAN) AMP IVP NR (14:30)
[2022-12-02 15:24] VITALS: BP 128/70
[2022-12-02] MEDS ORDERED: CYCLOBENZAPRINE 10 MG TABLET PO PRN (16:30)
[2022-12-02] MEDS ORDERED: PROMETHAZINE INJ 25 MG/ML (PHENERGAN) AMP IVP PRN (16:30)
[2022-12-02 19:26] VITALS: BP 131/81
[2022-12-02 23:30] VITALS: BP 140/72
--- NOTE | 2022-12-03 01:06 | DISCHARGE SUMMARY ---
DIAGNOSIS: Left knee primary osteoarthritis. PROCEDURE: Left total knee arthroplasty. SUMMARY: The patient is a 47-year-old female who underwent a left total knee arthroplasty on the date of admission. Postoperatively, she did well. At the time of discharge, her wound was clean and dry. She had no calf tenderness. Negative Homans sign. She was tolerating diet well and tolerating pain with oral pain medication. CONDITION AT DISCHARGE: Good. DISCHARGE DIET: Regular. Followup in 3 weeks. ACTIVITIES: Weightbearing as tolerated with a walker. Physical therapy has been arranged. DISCHARGE MEDICATIONS: Home medications plus one aspirin per day for 30 days, tramadol, Celebrex and gabapentin for pain. Job ID: [id number] DocumentID: [id number] Dictated Date: 12/02/2022 07:39:59 Gas Meter Installer Date: 12/03/2022 01:04:00 Dictated By: TRISTAN PEREZ MD
[2022-12-03 04:30] VITALS: BP 124/82
[2022-12-03] MEDS: oxyCODONE/ACETAMINOPHEN 5/325MG TABLET PO PRN ×2 (04:33→08:58)
--- NOTE | 2022-12-03 06:51 | Progress Note ---
Standard Progress Note Progress Notes/Assess & Plan Date Seen by a Provider: Dec 03, 2022 Time Seen by a Provider: 06:41 Progress/Assessment & Plan c/o nausea Vital Signs Date Time Temp Pulse Resp B/P (MAP) Pulse Ox O2 Delivery O2 Flow Rate FiO2 12/02/22 07:23 36.3 68 18 155/83 (107) 98 Room Air 12/02/22 04:52 36.3 60 18 135/84 (101) 97 Room Air 12/01/22 23:16 36.4 63 18 137/83 (101) 96 Room Air 12/01/22 21:00 Room Air 12/01/22 19:56 37.1 73 18 153/87 (109) 97 Room Air 12/01/22 17:17 Room Air 12/01/22 15:57 37.3 59 16 147/83 (104) 99 Room Air 12/01/22 11:56 36.7 52 20 126/82 (97) 100 Room Air 12/01/22 10:40 100 Room Air 12/01/22 10:36 Room Air 12/01/22 10:30 36.6 16 125/78 (94) 100 Room Air 12/01/22 10:20 14 113/71 (85) 100 Room Air 12/01/22 10:15 Room Air 12/01/22 10:10 14 126/71 (89) 100 Room Air 12/01/22 10:00 Room Air 12/01/22 10:00 16 111/77 (88) 98 Room Air 12/01/22 09:50 20 108/68 (81) 100 OxyMask 2.00 12/01/22 09:47 36.7 16 112/70 (84) 100 OxyMask 2.00 12/01/22 09:47 OxyMask 2.00 I & O 12/02/22 07:00 Intake Total 4800 ml Balance 4800 ml radiographs--HW well positioned without fracture LLE--intact DF and PF of toes and ankle 2 plus DP pulse with brisk cap refill sensation intact to light touch throughout s/p LTKA PT/OT zofran changed to fentanyl for pain meds Final Diagnosis somewhat better today Vital Signs Date Time Temp Pulse Resp B/P (MAP) Pulse Ox O2 Delivery O2 Flow Rate FiO2 12/03/22 06:18 Room Air 0.00 12/03/22 04:30 37.7 74 18 124/82 (96) 94 Room Air 12/02/22 23:30 37.5 71 16 140/72 (94) 97 Room Air 12/02/22 20:08 Room Air 12/02/22 19:26 37.6 94 16 131/81 (98) 92 Room Air 12/02/22 15:24 36.1 62 17 128/70 (89) 94 Room Air 12/02/22 11:23 36.2 73 18 131/82 (98) 94 Room Air 12/02/22 08:46 Room Air 12/02/22 07:23 36.3 68 18 155/83 (107) 98 Room Air I & O 12/03/22 07:00 Intake Total 1200 ml Balance 1200 ml LLE--incision clean and dry neg Janice's NVI distally s/p LTKA DC home after PT today TRISTAN PEREZ MD Dec 03, 2022 06:51
[2022-12-03 07:09] VITALS: BP 127/81
[2022-12-03] MEDS: ONDANSETRON 4 MG/2 ML (SDV) Z0FRAN IVP PRN (07:51)
--- NOTE | 2022-12-03 08:18 | Physical Therapy Daily Note ---
PT Daily Note-Current Subjective Patient continues to c/o 01/09 left knee pain with meds issued. Pain Numeric Pain Scale: 9 Location: Left Location Body Site: Knee Pain Description: Acute Section J - Health Conditions 1. Rarely or not at all 2. Occasionally 3. Frequently 4. Almost constantly 8. Unable to answer Pain Effect on Sleep: 2 Pain Interference with Therapy: 2 Pain Interference w/Day-to-Day: 2 Mental Status Patient Orientation: Normal For Age Transfers SCALE: Activities may be completed with or without assistive devices. 0-Mrigqdcjak-mtguqzh completes the activity by him/herself with no assistance from a helper. 5-Set-up or Clean-up Assistance-helper sets up or cleans up; patient completes activity. [place] assists only prior to or following the activity. 4-Supervision or Touching Assistance-helper provides verbal cues and/or touching/steadying and/or contact guard assistance as patient completes activity. Assistance may be provided throughout the activity or intermittently. 3-Partial/Moderate Assistance-helper does LESS THAN HALF the effort. [place] lifts, holds or supports trunk or limbs, but provides less than half the effort. 2-Substantial/Maximal Assistance-helper does MORE THAN HALF the effort. [place] l ifts or holds trunk or limbs and provides more than half the effort. 2-Gsmworbdj-lqgkpa does ALL the effort. Patient does none of the effort to complete the activity. Or, the assistance of 2 or more helpers is required for the patient to complete the activity. If activity was not attempted, code reason: 7-Patient Refused. 9-Not Applicable-not attempted and the patient did not perform the activity before the current illness, exacerbation or injury. 10-Not Attempted due to Environmental Limitations-(lack of equipment, weather restraints, etc.). 88-Not Attempted due to Medical Conditions or Safety Concerns. Lying to Sitting/Side of Bed(Q: 6 Sit to Stand (QC): 6 Chair/Vcn-ux-Jjaqv Xfer(QC): 6 Toilet Transfer (QC): 6 Weight Bearing Right Lower Extremity: Right Full Weight Bearing Left Lower Extremity: Left Weight Bearing/Tolerated Gait Training Distance: 250' Walk 10 feet (QC): 6 Walk 50 ft with 2 Turns(QC): 6 Walk 150 ft (QC): 6 Gait Assistive Device: FWW step to, slow, antalgic Exercises Supine Ex: Ankle pumps, Quad Set, Heel Slides, Straight leg raise Supine Reps: 15 Assessment Patient improving with treatment plan and will dismiss to home on this date. Patient educated on performing HEP PRN at home. PT Senior Care Goals [place]inder[place] Manager Goals PT Senior Care Goals Time Frame: Dec 30, 2022 Roll Left & Right (QC): 6 Sit to Lying (QC): 6 Lying-Sitting on Side/Bed(QC): 6 Sit to Stand (QC): 6 Chair/Iwj-pt-Yuwqn Xfer(QC): 6 Toilet Transfer (QC): 6 Does the Patient Walk: Yes Walk 10 feet (QC): 5 Walk 50ft with 2 Turns (QC): 5 Walk 150 ft (QC): 5 1 Step (curb) (QC): 4 4 Steps (QC): 4 12 Steps (QC): 4 PT Plan Treatment/Plan Treatment Plan: Discontinue PT Treatment Plan: Bed Mobility, Education, Functional Activity Steve, Functional Strength, Group Therapy, Gait, Safety, Therapeutic Exercise, Transfers Treatment Duration: Dec 30, 2022 Frequency: 11 times per week Estimated Hrs Per Day: .25 hour per day Patient and/or Family Agrees t: Yes Time Time In: 715 Time Out: 750 DATE: Dec 03, 2022 Total Billed Treatment Time: 35 Total Billed Treatment 1 visit EX 20 min GT 15 min SARAH HILTON PT Dec 03, 2022 08:18
[2022-12-03] MEDS: ENOXAPARIN 30 MG/0.3 ML SYRINGE SC SCH (08:58)
[2022-12-03] MEDS: ASPIRIN enteric coated 81MG TABLET PO SCH (08:58)
[2022-12-03] MEDS: ROSUVASTATIN 20 MG (CRESTOR) TABLET PO SCH (08:58)
[2022-12-03] MEDS: SENNOSIDES 8.6 MG (SENOKOT) TAB PO SCH (08:58)
[2022-12-03] MEDS: GABAPENTIN 300 MG CAPSULE PO SCH (08:58)
[2022-12-03] MEDS: DOCUSATE SODIUM 100 MG CAPSULE PO SCH (08:59)
[2022-12-03] MEDS: CELECOXIB 100 MG CAPSULE PO SCH (08:59)
[2022-12-03 09:00] VITALS: BP 127/81
--- NOTE | 2022-12-03 13:26 | Anesthesia-Regional Post-Op ---
Regional Patient Condition Mental Status: Alert, Oriented x3 Circulation: Same as Pre-Op Headache: Absent Sensation: Full Recovery Motor Block: Absent Post Op Complications Complications None Follow Up Care/Instructions Patient Instructions None needed. Anesthesia/Patient Condition Patient is already discharged to home. She did have some nausea this morning, most likely related to pain medication. She was doing well, no complaints, stable vital signs, no apparent adverse anesthesia problems. No complications reported per nursing prior to her discharge to home. VIVIENNE WEBB DO Dec 03, 2022 13:26
== END 2022-12-03 09:05 | disposition home or self-care (01) | DRG 470 ==
LOC: 4TH 05:55 → SURG 05:56 → 4TH 10:40
PROVIDERS: ADMIT Orthopaedic Surgery; ATTEND Orthopaedic Surgery
PROC: 0SRD0J9 Replacement of Left Knee Joint with Synthetic Substitute, Cemented, Open Approach (ICD-10-PCS; principal; 2022-12-01 07:33)
DX: M17.12 Unilateral primary osteoarthritis, left knee (principal); E66.01 Morbid (severe) obesity due to excess calories; Z68.39 Body mass index [BMI] 39.0-39.9, adult; K21.9 Gastro-esophageal reflux disease without esophagitis; I10 Essential (primary) hypertension; E78.00 Pure hypercholesterolemia, unspecified; G89.29 Other chronic pain; M54.9 Dorsalgia, unspecified
CPT/HCPCS: 73560; 86850; 86900; 86901; 94664